=== PATIENT | female | born 1950 | race Caucasian/White ===

== ENCOUNTER → 2017-08-02 | Outpatient (CLI) | payer OTHER ==
[~2017-08-02] MED LIST: ALBU90OI INH; ALBU90OI61; ALBU90OI61 INH; ASPI325; ASPI81CH PO; ATEN25; ATEN25 PO; BACL10 PO; BECL80OI INH; BELSOMRA10 MG PO; CALCIUM 500 +1 EAC1; CENTRUM SILVER1 EAC2 PO; CIPR500 PO; CLON1; CLON1 PO; EFFIENT10 MG PO; EZET10-20; EZET10-20 PO; FISH1000; FISH1000 PO; FLUO20 PO; FLUSAL2505 IH; FLUSAL5005 IH; FLUSAL5005 INH; FOSI10 PO; FURO40 PO; GABA300 PO; GLUC500 PO; HYDACE5 PO; HYDACE7.5 PO; IBUP600 PO; LAMO100 PO; LORA1 PO; MELO7.5 PO; METF500C PO; METO25ER PO; METR500 PO; MORP15ER PO; MULVITMIND PO; NITR.4SL SL; OLAN10 PO; OLAN20 PO; OMEGA PO; OMEP20ER PO; OMEPRAZOLE MAGN20 MG PO; OXYACE5T PO; OXYC5 PO; OXYGEN; PARO20 PO; POTCHL10ER PO; PROM25 PO; PROM25S PR; Percocet 10-321 EACH PO; ROSU10TA PO; RXPROM25S PR; SALM50IP IH; SERT100 PO; TOLT2 PO; VENL150ER PO
== END | disposition home or self-care (01) ==
LOC: LAB 14:30
DX: S21.90XA Unspecified open wound of unspecified part of thorax, initial encounter (principal)
CPT/HCPCS: 87070; 87077; 87147; 87186; 87205

== ENCOUNTER 2019-01-09 08:33 | Day surgery (SDC) | payer OTHER ==
[~2019-01-09] VITALS: Ht 154.9 cm; Wt 91.9 kg
[~2019-01-09 08:33] MED LIST changes: +BUDE6HFA INH; +Prinivil10 MG PO
--- NOTE | 2019-01-09 09:02 | NUR ---
History, Chart, Medications and Allergies reviewed before start of procedure. Patient confirms NPO status and agrees with scheduled surgery. Lungs clear T/O to Auscultation. Pre-Op teaching done. Pt verbalizes understanding. Patient States Post-Procedure ride home has been arranged. PATIENT REPORTS PREP NOT COMPLETED, DR SÁNCHEZ NOTIFIED, ORDERS RECEIVED. 8330 PATIENT TO ENDO 2 FOR TAP WATER ENEMA, GIVEN CALL LIGHT AND RAIL UP, PATIENT VERBALIZES UNDERSTANDING THAT SHE WILL CALL WHEN SHE IS READY TO GET UP TO COMODE.
--- NOTE | 2019-01-09 09:38 | NUR ---
TAP WATER ENEMA COMPLETED PER DR GONZALO PEARSON.
--- NOTE | 2019-01-09 10:07 | NUR ---
01/09/19 Africa Ramirez History, Chart, Medications and Allergies reviewed before start of procedure.PATIENT DETERMINED TO BE ASA APPROPRIATE FOR PROPOFOL SEDATION PRIOR TO START OF PROCEDURE BY .MONITOR INTACT WITH CONTINUOUS PULSE OXIMETRY AND INTERMITTENT BP.O2 VIA N/C INTACT THROUGHOUT SEDATION/PROCEDURE.3-LEAD EKG REVIEWED WITH PHYSICIAN PRIOR TO START OF PROCEDURE.
--- NOTE | 2019-01-09 10:28 | NUR ---
REPORT FROM VALENTE OLGUIN, ASSUMED CARE. PT AWAKE AND ALERT SITTING UP IN BED DRINKING COFFEE.
--- NOTE | 2019-01-09 10:56 | NUR ---
PT GETTING UP TO GET DRESSED ASSISTED BY CAREPROVIDER. Patient up to Ambulate independently. Gait steady. Discharge instructions reviewed with patient. Patient verbalizes understanding. Copy given to patient to take home. Patient States Post-Procedure ride home has been arranged. Discharged via wheelchair to private car for ride home. ALL BELONINGS RETUNED TO PATIENT.
== END 2019-01-09 23:11 | disposition home or self-care (01) ==
LOC: ORSCMMR 08:33 → ORD 10:00 → ORSCMMR 10:00
PROVIDERS: Internal Medicine Gastroenterology
PROC: 0DBN8ZX Excision of Sigmoid Colon, Via Natural or Artificial Opening Endoscopic, Diagnostic (ICD-10-PCS; principal; 2019-01-09 10:00)
DX: Z12.11 Encounter for screening for malignant neoplasm of colon (principal); D12.5 Benign neoplasm of sigmoid colon; K57.30 Diverticulosis of large intestine without perforation or abscess without bleeding; I25.10 Atherosclerotic heart disease of native coronary artery without angina pectoris; J44.9 Chronic obstructive pulmonary disease, unspecified; F31.9 Bipolar disorder, unspecified; I10 Essential (primary) hypertension; G47.33 Obstructive sleep apnea (adult) (pediatric); Z79.899 Other long term (current) drug therapy; Z79.82 Long term (current) use of aspirin; Z87.891 Personal history of nicotine dependence
CPT/HCPCS: 82947; 88305; J2704; J7120

== ENCOUNTER 2021-11-14 10:44 | Emergency (ER) | payer OTHER ==
[~2021-11-14] VITALS: Ht 154.9 cm; Wt 90.7 kg
== END 2021-11-14 13:49 | disposition home or self-care (01) ==
LOC: ER 10:44
DX: M25.551 Pain in right hip (principal); M54.50 Low back pain, unspecified; R10.2 Pelvic and perineal pain; J44.9 Chronic obstructive pulmonary disease, unspecified; F31.9 Bipolar disorder, unspecified; K21.9 Gastro-esophageal reflux disease without esophagitis; I10 Essential (primary) hypertension; E78.5 Hyperlipidemia, unspecified; J45.909 Unspecified asthma, uncomplicated; I25.10 Atherosclerotic heart disease of native coronary artery without angina pectoris; E66.9 Obesity, unspecified; Z68.37 Body mass index [BMI] 37.0-37.9, adult; Z91.81 History of falling; Z88.8 Allergy status to other drugs, medicaments and biological substances; Z87.891 Personal history of nicotine dependence
CPT/HCPCS: 72100; 72170; 73502; J1885

== ENCOUNTER → 2022-07-16 | Outpatient (CLI) | payer OTHER ==
[2022-07-16 10:07] LABS: Albumin, Blood 3.4 g/dL (3.4-5.0); Albumin/Globulin Ratio 0.8 (0.8-1.8); Bilirubin, Total 0.3 mg/dL (0.1-1.0); Bun/Creatinine Ratio 16.6 (12.0-20.0); Calcium, Blood 9.4 mg/dL (8.5-10.1); Creatinine, Blood 0.9 mg/dL (0.40-1.00); Globulin, Blood 4.2 g/dL (2.2-4.0); Potassium, Blood 4.5 mmol/L (3.5-5.5); Total Protein, Blood 7.6 g/dL (6.4-8.2)
== END | disposition home or self-care (01) ==
LOC: LAB SHORT 08:04
PROVIDERS: Hospitalist
DX: I10 Essential (primary) hypertension (principal)
CPT/HCPCS: 36415; 80053

== ENCOUNTER 2022-07-29 08:15 | Day surgery (SDC) | payer OTHER ==
[~2022-07-29 08:15] MED LIST changes: +Amitriptyline H10 MG PO; +BENZ100A PO; +CYCL10 PO; +HYDROCODONE PO; +Isosorbide Mono30 MG PO; +MIRT15ST PO; -OMEPRAZOLE MAGN20 MG PO; +ONDA4 PO
--- NOTE | 2022-07-29 09:41 | NUR ---
PT HAD COFFEE PRESENT WHEN GETTING PT FROM WAITING AREA. PT REPORTED THAT SHE HAD BLACK COFFEE 20 MINUTES AGO. PT IN TO SDS BY WC. NOTIFIED OF PT HAVING COFFEE 20 MINUTES AGO. TALKED WITH PT AND CANCELLED THIS PROCEDURE AND REPORTS HE WILL HAVE IT RESCHEDULED. PT'S RIDE CALLED WHO REPORTED HE WOULD BE ABLE TO PICK HER UP IN APPROX 30 MINUTES. PT REPORTED THAT SHE DID NOT WANT TO WAIT IN HERE TO BE PICKED UP THAT SHE WANTED TO GO TO THE FRONT WHERE SHE WOULD BE PICKED UP. RN ASSISTED IN FINDING HER WALKER. PT USED WALKER AND SAT ON CHAIR WITH STEADY GAIT. PT HAD NO IV, NO SEDATION, NO MEDICATION. PT OUT OF SDS AT 09:47, WAITING FOR RIDE IN FRONT WAITING AREA PER HER REQ.
[2022-08-02] MEDS ORDERED: ONDA4 PO (13:40)
[2022-08-02] MEDS ORDERED: CYCL10 PO (13:40)
== END 2022-07-29 09:47 | disposition home or self-care (01) ==
LOC: ORSCMMR 08:15 → ORD 10:30 → ORSCMMR 10:30
DX: R13.14 Dysphagia, pharyngoesophageal phase (principal); Z53.9 Procedure and treatment not carried out, unspecified reason
CPT/HCPCS: J2704

== ENCOUNTER 2022-08-05 09:54 | Day surgery (SDC) | payer OTHER ==
[~2022-08-05 09:54] MED LIST changes: -BUDE6HFA INH; +SYMBICORT 160-4.6 GM INH
--- NOTE | 2022-08-05 10:51 | NUR ---
PT PROCEDURE CANCELLED DUE TO NOT BEING NPO LONG ENOUGH TO HAVE PROCEDURE DONE. DR GUSMAN AND DR SÁNCHEZ AWARE. PT'S RIDE CALLED AND TAKEN TO RIDE VIA W/C.
[2022-10-13] MEDS ORDERED: CALCITONIN-SAL3.7 M5 (14:17)
== END 2022-08-05 23:03 | disposition home or self-care (01) ==
LOC: ORSCMMR 09:54 → ORD 11:45 → ORSCMMR 23:03
DX: R13.14 Dysphagia, pharyngoesophageal phase (principal); Z53.9 Procedure and treatment not carried out, unspecified reason

== ENCOUNTER 2022-10-10 04:43 | Inpatient (IN) | payer OTHER ==
[~2022-10-10] VITALS: Ht 154.9 cm; Wt 94.8 kg
[~2022-10-10 04:43] MED LIST changes: +BUDE6HFA INH; -SYMBICORT 160-4.6 GM INH
[2022-10-10] MEDS ORDERED: OXAYDO5 M1 PO (07:57)
[2022-10-10 10:11] LABS: BASOPHILS ABSOLUTE AUTO 0.03 K/mm3 (0.00-0.23); BASOPHILS PERCENT AUTO 0 % (0-2); EOSINOPHILS ABSOLUTE AUTO 0.03 K/mm3 (0.00-0.68); EOSINOPHILS PERCENT AUTO 0 % (0-6); Hematocrit 35.4 % (33.0-51.0); Hemoglobin 11.3 g/dL (11.5-16.0); IMMATURE GRAN ABSOLUTE AUTO 0.03 K/mm3 (0.00-0.10); IMMATURE GRAN PERCENT AUTO 0 % (0-1); LYMPHOCYTES ABSOLUTE AUTO 1.36 K/mm3 (0.84-5.20); LYMPHOCYTES PERCENT AUTO 17 % (21-46); MONOCYTES PERCENT AUTO 5 % (4-13); Mean Corpuscular HGB 27.5 pg (26.0-34.0); Mean Corpuscular HGB Conc 31.9 g/dL (31.5-36.5); Mean Corpuscular Volume 86 fL (80-100); Mean Platelet Volume 8.9 fL (9.1-12.4); NEUTROPHILS ABSOLUTE AUTO 6.17 K/mm3 (1.96-9.15); NEUTROPHILS PERCENT AUTO 77 % (41-73); Platelet Count 217 K/mm3 (150-400); RDW Standard Deviation 47.2 fL (35.1-46.3); Red Blood Cell Count 4.11 M/mm3 (3.80-5.20); White Blood Cell Count 8.02 K/mm3 (4.00-11.30)
[2022-10-10 10:22] LABS: Bun/Creatinine Ratio 25.8 (12.0-20.0); Calcium, Blood 8.9 mg/dL (8.5-10.1); Creatinine, Blood 0.66 mg/dL (0.40-1.00)
--- NOTE | 2022-10-10 11:10 | NUR ---
PATIENT ARRIVED TO ROOM 212 VIA GURNEY. PATIENT STOOD AND TRANSFERRED TO BED MINIMAL 1P ASSIST. PATIENT REPORTS 8/10 PAIN TO R SIDE, UNDER ARMPIT. LUNGS CLEAR, DIMINISHED IN BASES. DENIES CP/PRESSURE/SOB. DENIES DIZZINESS/LIGHTHEADEDNESS. VSS ON RA. PATIENT IS A&O X4. NO BRUISING NOTED T/O. ORIENTED TO ROOM AND CALL LIGHT, IN REACH. PLAN TO MEDICATE PER EMAR.
--- NOTE | 2022-10-10 17:05 | NUR ---
SHIFT SUMMARY NO ACUTE CHANGES SINCE ARRIVAL TO UNIT. PAIN MANAGED PER EMAR. PATIENT TOLERATING REGULAR PO DIET. VSS ON RA. PATIENT UP TO BSC X1, MINIMAL ASSISTANCE. CALLS APPROPRIATELY, IN REACH. WILL REPORT TO ONCOMING RN AT 1900.
--- NOTE | 2022-10-11 03:52 | NUR ---
SHIFT SUMMARY AOX3. FOLLOWS DIRECTIONS, ANSWERS QUESTIONS APPROP. BP ELEVATED @HS 165/122, HOWEVER PT WAS IN EXTREME PAIN & HAD JUST TRANSFERRED FROM BSC. WHEN BP RECHECKED AFTER PAIN MEDS IT TRENDED DOWN TO 145/85. WITH AM VS PT SPO2 @84-86% ON RA, PT MOUTH BREATHING, PLACED 2L O2 VIA NC ON & PT SPO2 INCREASED TO 93%, HAS HX MARQUES. REPORTS -06/26 LIZ ON R SIDE R/T RIB FX, MEDICATED 2x c 1MG IV DILAUDID & 2 TAB NORCO, PT ABLE TO REST COMFORTABLY FOR A FEW HRS. PT 1-2 ASSIST TO BSC R/T PAIN & STIFF MOVEMENT. CALL LIGHT IN REACH, WILL MONITOR.
[2022-10-11 05:35] LABS: BASOPHILS ABSOLUTE AUTO 0.02 K/mm3 (0.00-0.23); BASOPHILS PERCENT AUTO 0 % (0-2); EOSINOPHILS ABSOLUTE AUTO 0.11 K/mm3 (0.00-0.68); EOSINOPHILS PERCENT AUTO 2 % (0-6); Hematocrit 38.5 % (33.0-51.0); Hemoglobin 12.2 g/dL (11.5-16.0); IMMATURE GRAN ABSOLUTE AUTO 0.03 K/mm3 (0.00-0.10); IMMATURE GRAN PERCENT AUTO 0 % (0-1); LYMPHOCYTES ABSOLUTE AUTO 0.89 K/mm3 (0.84-5.20); LYMPHOCYTES PERCENT AUTO 13 % (21-46); MONOCYTES ABSOLUTE AUTO 0.35 K/mm3 (0.16-1.47); MONOCYTES PERCENT AUTO 5 % (4-13); Mean Corpuscular HGB Conc 31.7 g/dL (31.5-36.5); Mean Corpuscular Volume 89 fL (80-100); Mean Platelet Volume 8.9 fL (9.1-12.4); NEUTROPHILS ABSOLUTE AUTO 5.44 K/mm3 (1.96-9.15); NEUTROPHILS PERCENT AUTO 80 % (41-73); Platelet Count 211 K/mm3 (150-400); RDW Coefficient Variation 15.2 % (11.7-14.2); RDW Standard Deviation 49.3 fL (35.1-46.3); Red Blood Cell Count 4.35 M/mm3 (3.80-5.20); White Blood Cell Count 6.84 K/mm3 (4.00-11.30)
[2022-10-11 06:04] LABS: Bun/Creatinine Ratio 30.7 (12.0-20.0); Calcium, Blood 8.9 mg/dL (8.5-10.1); Creatinine, Blood 0.59 mg/dL (0.40-1.00); Potassium, Blood 4.1 mmol/L (3.5-5.5)
--- NOTE | 2022-10-11 14:30 | NUR ---
DISCHARGE SUMMARY PT A&OX4, VSS/RA, SILVIANO PO, VOIDING, AMB FWW, PAIN MANAGED, TCDB & I.S. EDU/ENC/DEMONSTRATED, SPLINTING WITH COUGH/LAUGH/SNEEZE/REPOSITION, IV DC'D. DC INS PROVIDED. PT AND D.I.L. REP UNDERSTANDING THOSE INSTRUCTIONS INCLUDING FU WITH PCP 1 WEEK, SURGEON IF NEEDED, TCDB & I.S. FREQUENTLY, TAKE SHORT FREQUENT WALKS WITH REST PERIODS. DIL STATES CAREGIVER WILL MEET PT AT HOME. LEFT VIA WC WITH TRANSPORT WITH ALL PERSONAL POSSESSIONS INCLUDING DC PACKET, 1 NARC SCRIPT, PERSONAL FWW, TABLET & PHONE.
== END 2022-10-11 14:42 | disposition home or self-care (01) | DRG 86 ==
LOC: ER 04:43 → SURS 09:14
PROVIDERS: Student in an Organized Health Care Education/Training Program; ADMIT Surgery
DX: S06.5X0A Traumatic subdural hemorrhage without loss of consciousness, initial encounter (principal); S22.41XA Multiple fractures of ribs, right side, initial encounter for closed fracture; S32.028A Other fracture of second lumbar vertebra, initial encounter for closed fracture; J44.9 Chronic obstructive pulmonary disease, unspecified; F31.9 Bipolar disorder, unspecified; M19.90 Unspecified osteoarthritis, unspecified site; G89.4 Chronic pain syndrome; K21.9 Gastro-esophageal reflux disease without esophagitis; E78.00 Pure hypercholesterolemia, unspecified; G47.33 Obstructive sleep apnea (adult) (pediatric); E66.9 Obesity, unspecified; I25.10 Atherosclerotic heart disease of native coronary artery without angina pectoris; I11.0 Hypertensive heart disease with heart failure; I50.9 Heart failure, unspecified; R73.03 Prediabetes; Z96.643 Presence of artificial hip joint, bilateral; M85.80 Other specified disorders of bone density and structure, unspecified site; Z68.37 Body mass index [BMI] 37.0-37.9, adult; Z90.49 Acquired absence of other specified parts of digestive tract; Z98.51 Tubal ligation status; Z90.710 Acquired absence of both cervix and uterus; Z90.722 Acquired absence of ovaries, bilateral; Z98.890 Other specified postprocedural states; Z88.8 Allergy status to other drugs, medicaments and biological substances; Z79.82 Long term (current) use of aspirin; Z79.84 Long term (current) use of oral hypoglycemic drugs; Z79.899 Other long term (current) drug therapy; W01.198A Fall on same level from slipping, tripping and stumbling with subsequent striking against other object, initial encounter
CPT/HCPCS: 36415; 70450; 71046; 71260; 80048; 82947; 85025; 93005; 93010; 94640; 94664; 94760; 96374-59; 96375-59; 97162; 97165; 97530; 97535; 99285-25; A9270; G0378; J1170; J1885; J2270; J3010; Q9967

== ENCOUNTER 2022-10-13 04:39 | Inpatient (IN) | payer OTHER ==
[~2022-10-13] VITALS: Ht 154.9 cm; Wt 92.1 kg
[~2022-10-13 04:39] MED LIST changes: +OXAYDO5 M1 PO
[2022-10-13 05:06] LABS: BASOPHILS ABSOLUTE AUTO 0.03 K/mm3 (0.00-0.23); BASOPHILS PERCENT AUTO 0 % (0-2); EOSINOPHILS ABSOLUTE AUTO 0.01 K/mm3 (0.00-0.68); EOSINOPHILS PERCENT AUTO 0 % (0-6); Hematocrit 34.3 % (33.0-51.0); Hemoglobin 10.8 g/dL (11.5-16.0); IMMATURE GRAN ABSOLUTE AUTO 0.03 K/mm3 (0.00-0.10); IMMATURE GRAN PERCENT AUTO 0 % (0-1); LYMPHOCYTES ABSOLUTE AUTO 0.64 K/mm3 (0.84-5.20); LYMPHOCYTES PERCENT AUTO 7 % (21-46); MONOCYTES PERCENT AUTO 3 % (4-13); Mean Corpuscular HGB 28.2 pg (26.0-34.0); Mean Corpuscular HGB Conc 31.5 g/dL (31.5-36.5); Mean Corpuscular Volume 90 fL (80-100); Mean Platelet Volume 8.8 fL (9.1-12.4); NEUTROPHILS ABSOLUTE AUTO 7.83 K/mm3 (1.96-9.15); NEUTROPHILS PERCENT AUTO 89 % (41-73); Platelet Count 236 K/mm3 (150-400); RDW Coefficient Variation 15.6 % (11.7-14.2); RDW Standard Deviation 50.8 fL (35.1-46.3); Red Blood Cell Count 3.83 M/mm3 (3.80-5.20); White Blood Cell Count 8.84 K/mm3 (4.00-11.30)
[2022-10-13 05:26] LABS: Albumin, Blood 2.3 g/dL (3.4-5.0); Albumin/Globulin Ratio 0.6 (0.8-1.8); Bilirubin, Total 0.3 mg/dL (0.1-1.0); Bun/Creatinine Ratio 35.3 (12.0-20.0); Calcium, Blood 7.5 mg/dL (8.5-10.1); Creatinine, Blood 0.54 mg/dL (0.40-1.00); Globulin, Blood 4.1 g/dL (2.2-4.0); Potassium, Blood 3.8 mmol/L (3.5-5.5); Total Protein, Blood 6.4 g/dL (6.4-8.2)
[2022-10-13 06:53] LABS: Creatine Kinase MB 33.4 ng/mL (0.0-3.6)
[2022-10-13 07:13] LABS: Creatine Kinase MB Index 1.6 (0.0-4.0)
--- NOTE | 2022-10-13 11:12 | NUR ---
PATIENT ARRIVED ONTO THE UNIT FROM ER TODAY AT 10:30. RIGHT SIDE RIB FX PATIENT IS A&OX4. PATIENT HAS HER RIGHT SIDE GUARDED. PATIENT REPORTS 10/10 PAIN ON HER RIGHT SIDE WITH MOVEMENT. SHE HAS BRUISING SCATTERED THROUGHTOUT. SHE IS ON 2L NC WITH >90% OXYGEN SATS WITH A SLIGHT DRY COUGH. LUNG SOUNDS ARE COURSE/DIMINISHED THROUGHOUT. SHE IS LAYING IN BED WITH CALL LIGHT IN REACH.
[2022-10-13] MEDS ORDERED: CALCITONIN SALMON (14:17)
--- NOTE | 2022-10-13 17:25 | NUR ---
SHIFT SUMMARY: RIGHT SIDE RIB FX PATIENT IS A&OX4. VS ARE WNL AND IS ON 2L NC WITH >90% OXYGEN SATS. PATIENT DOES HAVE A MOIST COUGH ESPECIALLY WITH AMBULATION. ENCOURAGING USE OF DEEP OF BREATHING AND COUGHING WITH A PILLOW. SHE HAS HAD HER NEBULIZER FROM [facility] WHICH PATIENT REPORTED "THAT WAS VERY HELPFUL". SHE IS TOLERATING PO INTAKE AND IS VOIDING. PATIENT IS A SBA WITH A FWW AND GAIT BELT. PATIENT CALLS APPROPRIATELY WITH CALL LIGHT IN REACH. SHE DID TOLERATE SITTING UP IN THE RECLINER FOR A COUPLE OF HOURS TODAY.
[2022-10-14 05:10] LABS: BASOPHILS ABSOLUTE AUTO 0.02 K/mm3 (0.00-0.23); BASOPHILS PERCENT AUTO 0 % (0-2); EOSINOPHILS ABSOLUTE AUTO 0.16 K/mm3 (0.00-0.68); EOSINOPHILS PERCENT AUTO 2 % (0-6); Hematocrit 35.5 % (33.0-51.0); Hemoglobin 11.6 g/dL (11.5-16.0); IMMATURE GRAN ABSOLUTE AUTO 0.02 K/mm3 (0.00-0.10); IMMATURE GRAN PERCENT AUTO 0 % (0-1); LYMPHOCYTES ABSOLUTE AUTO 1.57 K/mm3 (0.84-5.20); LYMPHOCYTES PERCENT AUTO 19 % (21-46); MONOCYTES ABSOLUTE AUTO 0.43 K/mm3 (0.16-1.47); MONOCYTES PERCENT AUTO 5 % (4-13); Mean Corpuscular HGB 28.5 pg (26.0-34.0); Mean Corpuscular HGB Conc 32.7 g/dL (31.5-36.5); Mean Corpuscular Volume 87 fL (80-100); NEUTROPHILS ABSOLUTE AUTO 5.92 K/mm3 (1.96-9.15); NEUTROPHILS PERCENT AUTO 73 % (41-73); Platelet Count 245 K/mm3 (150-400); RDW Coefficient Variation 15.5 % (11.7-14.2); RDW Standard Deviation 49.2 fL (35.1-46.3); Red Blood Cell Count 4.07 M/mm3 (3.80-5.20); White Blood Cell Count 8.12 K/mm3 (4.00-11.30)
[2022-10-14 05:42] LABS: Albumin, Blood 2.5 g/dL (3.4-5.0); Albumin/Globulin Ratio 0.6 (0.8-1.8); Bilirubin, Total 0.5 mg/dL (0.1-1.0); Bun/Creatinine Ratio 31.7 (12.0-20.0); Calcium, Blood 9.1 mg/dL (8.5-10.1); Creatinine, Blood 0.57 mg/dL (0.40-1.00); Globulin, Blood 4.1 g/dL (2.2-4.0); Potassium, Blood 3.9 mmol/L (3.5-5.5); Total Protein, Blood 6.6 g/dL (6.4-8.2)
--- NOTE | 2022-10-14 06:24 | NUR ---
MANAGER DIGITAL SUMMARY PT STILL HAVING PAIN TO R RIBS AND SIDE. MEDICATED WITH PRN FENTANYL AND OXYCODONE PER EMAR. PT ALSO GIVEN FLEXERIL WHICH SEEMED TO HELP. PT VERY PAINFUL WHEN GETTING UP TO THE BSC BUT HAS BEEN ABLE TO SLEEP THROUGH MOST OF THE SHIFT. PT LUNG SOUNDS CONGESTED HOWEVER PT HAS TROUBLE DEEP COUGHING DUE TO RIB PAIN, PLACED ON 3L O2 TO MAINTAIN O2 SATS. PT SLEEPING AT THIS TIME WITH CALL LIGHT IN REACH. WILL CONTINUE TO MONITOR.
--- NOTE | 2022-10-14 18:10 | NUR ---
PT REPORTS PAIN HAS BEEN 7-10/10 THROUGHOUT SHIFT TO RIGHT RIBCAGE AND LEFT FOOT. PT OOB TO COMMODE WITH 2 PERSON STANDBY ASSIST. PT TEARFUL AT TIMES STATING THAT SHE IS AFRAID SHE WILL NEVER GET TO RW[place] TO HER HOME
--- NOTE | 2022-10-15 06:39 | NUR ---
SHIFT SUMMARY: PT RESTED T/O THE NIGHT. PAIN WELL MANAGED PER EMAR ORDERS. UP TO COMMODE WITH X2 ASSIST. RIGHT RIB FX AND FX TO THE PROXIMAL END OF THE L METATARSAL. PAIN WITH MOVEMENT AND AMBULATION. TOLERATING PO FLUIDS AND FOOD. PLANS TO POTENTIALLY DISCHARGE TO A FACILITY, PER PATIENT. RESTING WITH CALL LIGHT IN REACH. WILL GIVE REPORT TO DAY TIME RN.
--- NOTE | 2022-10-15 14:00 | NUR ---
ATTEMPTED TO SPLINT PATIENTS 5TH METATARSEL TO LEFT FOOT, PER ORDERS. UNABLE TO PLACE SPLINT D/T LOCATION OF FRACTURE AND RELATED PAIN REPORTED BY PATIENT. PATIENT REPORTS "IT FEELS FINE LONG I DONT PUT PRESSURE ON IT". REMINDED PATIENT THAT THE LEFT LEG IS TO BE NON-WEIGHT BEARING PER MD'S ORDERS.
--- NOTE | 2022-10-15 17:22 | NUR ---
SHIFT SUMMARY NO ACUTE CHANGES THIS SHIFT. PATIENT REMAINS VERY PAINFUL WITH MOVEMENT BUT PAIN MINIMAL AT REST. EATING, DRINKING, & VOIDING WELL. 1P MINIMAL ASSIST TO BSC. CALLS APPROPRIATELY, IN REACH. WILL REPORT TO ONCOMING RN AT 1900.
[2022-10-16 04:40] LABS: BASOPHILS ABSOLUTE AUTO 0.02 K/mm3 (0.00-0.23); BASOPHILS PERCENT AUTO 0 % (0-2); EOSINOPHILS ABSOLUTE AUTO 0.21 K/mm3 (0.00-0.68); EOSINOPHILS PERCENT AUTO 3 % (0-6); Hematocrit 35.2 % (33.0-51.0); Hemoglobin 11.2 g/dL (11.5-16.0); IMMATURE GRAN ABSOLUTE AUTO 0.04 K/mm3 (0.00-0.10); IMMATURE GRAN PERCENT AUTO 1 % (0-1); LYMPHOCYTES ABSOLUTE AUTO 1.57 K/mm3 (0.84-5.20); LYMPHOCYTES PERCENT AUTO 25 % (21-46); MONOCYTES ABSOLUTE AUTO 0.38 K/mm3 (0.16-1.47); MONOCYTES PERCENT AUTO 6 % (4-13); Mean Corpuscular HGB 27.7 pg (26.0-34.0); Mean Corpuscular HGB Conc 31.8 g/dL (31.5-36.5); Mean Corpuscular Volume 87 fL (80-100); Mean Platelet Volume 8.7 fL (9.1-12.4); NEUTROPHILS ABSOLUTE AUTO 3.96 K/mm3 (1.96-9.15); NEUTROPHILS PERCENT AUTO 64 % (41-73); Platelet Count 259 K/mm3 (150-400); RDW Coefficient Variation 15.6 % (11.7-14.2); RDW Standard Deviation 49.5 fL (35.1-46.3); Red Blood Cell Count 4.04 M/mm3 (3.80-5.20); White Blood Cell Count 6.18 K/mm3 (4.00-11.30)
[2022-10-16 05:00] LABS: Bun/Creatinine Ratio 22.7 (12.0-20.0); Calcium, Blood 8.7 mg/dL (8.5-10.1); Creatinine, Blood 0.53 mg/dL (0.40-1.00); Potassium, Blood 3.8 mmol/L (3.5-5.5)
--- NOTE | 2022-10-16 05:30 | NUR ---
SHIFT SUMMARY PT A&OX4, AND COOPERATIVE WITH CARE. NO ACUTE CHANGES. MEDICATED FOR PAIN PER EMAR, INCREASES WITH AMBULATION. 1 ASSIST WITH FWW TO BSC. TOLERATING PO INTAKE. CALLS APPROPRIATELY, CALL LIGHT WITHIN REACH.
--- NOTE | 2022-10-16 16:17 | NUR ---
SHIFT SUMMARY PT REMAINS IN THE HOSPITAL WAITING FOR SNF PLACEMENT ON TUESDAY. PAIN MANAGED WITH PO PAIN MEDICATION. PO PAIN MEDICATION INCREASED TO OXY 15MG; PT HAS NOT REQUIRED FENTANYL FOR BREAKTHROUGH PAIN SINCE OXY WAS INCREASED. PT IS A 1 PERSON MODERATE ASSIST WHEN OOB. PT EDUCATED TO USE INCENTIVE SPIROMETER AND HAS BEEN USING T/O THE DAY. WILL MONITOR UNTIL REPORT TO TIFFANIE RN.
--- NOTE | 2022-10-17 06:02 | NUR ---
SHIFT SUMMARY NO ACUTE CHANGES OVERNIGHT, PT HAS SLEPT MOST OF THE NIGHT. PT PAIN HAS BEEN WELL MANAGED THIS SHIFT, MEDICATED X2 FOR PAIN. SHE HAS BEEN UP AND HAS AMBULATED TO THE BS WITH 1 PA. VITALS ARE STABLE, ASSESSMENT AND PLAN OF CARE UNCHANGED. BED IN LOWEST POSITION, CALL LIGHT WITHIN REACH.
--- NOTE | 2022-10-17 17:15 | NUR ---
SUMMARY NO ACUTE CHANGES T/O SHIFT. MEDICATED PER ORDERS FOR PAIN. PT SAT UP IN CHAIR FOR MEALS AND UP TO BSC TO TOILET. CALL LIGHT IN REACH.
--- NOTE | 2022-10-18 06:53 | NUR ---
SUMMARY NO ACUTE CHANGES NOTED THROUGH THE NIGHT, VSS, ON RA, INCENTIVE SPIROMETER ENC, PAIN MNGD PER EMAR PRN, SBA TO BSC W/FWW, VOIDING WNL, TOLERATING PO INTAKE, CALL LIGHT IN REACH, RESTING QUIETLY IN BED DRINKING HOT TEA, REPORT GIVEN TO ONCOMING RN.
--- NOTE | 2022-10-18 17:21 | NUR ---
SHIFT SUMMARY NO ACUTE CHANGES THIS SHIFT. PATIENT EATING, DRINKING, & VOIDING WEL;L. AMBULATING WELL W/ 1P SBA TO CHAIR & BATHROOM. PATIENT REMIANS PAINFUL W/ MOVEMENT, MEDICATED PER EMAR. PLAN FOR PATIENT TO DC TO SNF, AWAITING INSURANCE AUTHORIZATION. CALLS APPROPRIATELY, WILL REPORT TO ONCOMING RN AT 1900.
--- NOTE | 2022-10-19 07:21 | NUR ---
SHIFT SUMMARY MO ACUTE CHANGES NOTED, VSS, RA, I/S ENC, PRODUCTIVE COUGH, PAIN MNGD PER EMAR, PT STATES "FENTANYL PATCH IS HELPING ALOT", TOLERATING PO INTAKE, VOIDING WNL, REPORT GIVEN TO DAY RN, CALL LIGHT IN REACH.
[2022-10-19] MEDS ORDERED: LEVO750 PO (16:19)
[2022-10-19] MEDS ORDERED: Acetaminophen325 M1 PO (16:19)
--- NOTE | 2022-10-19 16:50 | NUR ---
DISCHARGE PATIENT EATING, DRINKING, & VOIDING WELL. AMBULATING WITH STAND BY ASSIST WELL. MODERATE PAIN, MANAGED PER EMAR. PATIENT FEELS COMFORTABLE DC'ING HOME W/ PAIN MEDICATION REGIMEN PRESCRIBED. DICUSSED DISCHARGE INSTRUCTIONS. DISCUSSED RECCOMENDED ACTIVITY RESTRICTIONS OF USING A WALKER WITH ALL ACTIVITY, SUPERVISION WITH ACITIVITY, ESPECIALLY BENDING/STOOPING. PATIENT VERBALIZES AGREEMENT. PATIENT ESCORTED OUT BY [facility] TRANSPORT VIA W/C.
== END 2022-10-19 16:50 | disposition home health service (06) | DRG 562 ==
LOC: ER 04:39 → SURS 04:40
PROVIDERS: Student in an Organized Health Care Education/Training Program; ADMIT Internal Medicine
DX: S92.355A Nondisplaced fracture of fifth metatarsal bone, left foot, initial encounter for closed fracture (principal); J18.9 Pneumonia, unspecified organism; S06.5XAA Traumatic subdural hemorrhage with loss of consciousness status unknown, initial encounter; J96.01 Acute respiratory failure with hypoxia; S22.9XXA Fracture of bony thorax, part unspecified, initial encounter for closed fracture; S22.41XA Multiple fractures of ribs, right side, initial encounter for closed fracture; J98.11 Atelectasis; I50.32 Chronic diastolic (congestive) heart failure; J44.9 Chronic obstructive pulmonary disease, unspecified; I25.10 Atherosclerotic heart disease of native coronary artery without angina pectoris; F31.9 Bipolar disorder, unspecified; M19.90 Unspecified osteoarthritis, unspecified site; E78.00 Pure hypercholesterolemia, unspecified; G47.33 Obstructive sleep apnea (adult) (pediatric); G43.909 Migraine, unspecified, not intractable, without status migrainosus; E66.9 Obesity, unspecified; Z68.37 Body mass index [BMI] 37.0-37.9, adult; R73.03 Prediabetes; G89.4 Chronic pain syndrome; M85.80 Other specified disorders of bone density and structure, unspecified site; I11.0 Hypertensive heart disease with heart failure; K21.9 Gastro-esophageal reflux disease without esophagitis; W19.XXXA Unspecified fall, initial encounter; Z96.641 Presence of right artificial hip joint; I25.2 Old myocardial infarction; Z79.84 Long term (current) use of oral hypoglycemic drugs; Z79.82 Long term (current) use of aspirin; Z79.899 Other long term (current) drug therapy; Z79.51 Long term (current) use of inhaled steroids; Z90.49 Acquired absence of other specified parts of digestive tract; Z98.51 Tubal ligation status; Z90.710 Acquired absence of both cervix and uterus; Z90.722 Acquired absence of ovaries, bilateral; Z98.1 Arthrodesis status; Z95.5 Presence of coronary angioplasty implant and graft; Z87.891 Personal history of nicotine dependence; Z88.1 Allergy status to other antibiotic agents
CPT/HCPCS: 36415; 70450; 71046; 71250; 73610; 73620; 80048; 80053; 82550; 82553; 85025; 87070; 87077; 87147; 87186; 87205; 93005; 93010; 94640; 94664; 94760; 96360; 96365; 96366; 96372; 96375; 96376; 97110; 97162; 97165; 97530; 97535; 99285-25; A9270; C1751; G0378; J0456; J0696; J1644; J3010; J7030; J7050

== ENCOUNTER 2022-10-21 00:13 | Observation (INO) | payer OTHER ==
[~2022-10-21] VITALS: Ht 160 cm; Wt 96.9 kg
[~2022-10-21 00:13] MED LIST changes: +Acetaminophen325 M1 PO; -BUDE6HFA INH; +CALCITONIN-SAL3.7 M5; +LEVO750 PO; +SYMBICORT 160-4.6 GM INH
[2022-10-21 00:49] LABS: Base Excess Venous 4.7 mmol/L; Bicarbonate Venous 27.4 mmol/L (24.0-30.0); PCO2 Venous 52.5 mmHg (38-42); pH Blood Venous 7.37 (7.34-7.37)
[2022-10-21 00:50] LABS: BASOPHILS ABSOLUTE AUTO 0.05 K/mm3 (0.00-0.23); BASOPHILS PERCENT AUTO 0 % (0-2); EOSINOPHILS ABSOLUTE AUTO 0.04 K/mm3 (0.00-0.68); EOSINOPHILS PERCENT AUTO 0 % (0-6); Hemoglobin 11.6 g/dL (11.5-16.0); IMMATURE GRAN ABSOLUTE AUTO 0.17 K/mm3 (0.00-0.10); IMMATURE GRAN PERCENT AUTO 1 % (0-1); LYMPHOCYTES ABSOLUTE AUTO 0.93 K/mm3 (0.84-5.20); LYMPHOCYTES PERCENT AUTO 5 % (21-46); MONOCYTES ABSOLUTE AUTO 0.56 K/mm3 (0.16-1.47); MONOCYTES PERCENT AUTO 3 % (4-13); Mean Corpuscular HGB 27.9 pg (26.0-34.0); Mean Corpuscular HGB Conc 31.4 g/dL (31.5-36.5); Mean Corpuscular Volume 89 fL (80-100); Mean Platelet Volume 8.7 fL (9.1-12.4); NEUTROPHILS ABSOLUTE AUTO 16.67 K/mm3 (1.96-9.15); NEUTROPHILS PERCENT AUTO 91 % (41-73); Platelet Count 368 K/mm3 (150-400); RDW Coefficient Variation 16.3 % (11.7-14.2); RDW Standard Deviation 53.3 fL (35.1-46.3); Red Blood Cell Count 4.16 M/mm3 (3.80-5.20); White Blood Cell Count 18.42 K/mm3 (4.00-11.30)
[2022-10-21 01:20] LABS: Albumin, Blood 3.1 g/dL (3.4-5.0); Albumin/Globulin Ratio 0.8 (0.8-1.8); Bilirubin, Total 0.4 mg/dL (0.1-1.0); Bun/Creatinine Ratio 16.8 (12.0-20.0); Calcium, Blood 9.6 mg/dL (8.5-10.1); Creatinine, Blood 0.95 mg/dL (0.40-1.00); Globulin, Blood 3.9 g/dL (2.2-4.0); Potassium, Blood 4.6 mmol/L (3.5-5.5)
[2022-10-21 03:39] LABS: Influenza A, PCR NEGATIVE (NEGATIVE); Influenza B, PCR NEGATIVE (NEGATIVE); Resp Syncytial Virus, PCR NEGATIVE (NEGATIVE); SARS-Cov-2 (COVID-19) PCR, MMC NEGATIVE (NEGATIVE)
[2022-10-21 04:08] LABS: Source, Urine Straight Cath
[2022-10-21 04:16] VITALS: BP 123/97
[2022-10-21 04:18] LABS: Blood, Urine Neg (Neg); Glucose Qualitative, Urine Neg (Neg); Ketones, Urine 1+ (Neg); Leukocyte Esterase, Urine 1+ (Neg); Nitrite, Urine Neg (Neg); Protein, Urine 2+ (Neg); Specific Gravity, Urine 1.015 (1.003-1.022); Urobilinogen, Urine 2+ (Normal)
[2022-10-21 04:35] LABS: Appearance, Urine Hazy (Clear); Bilirubin, Urine 2+ (Neg); Color, Urine Yellow (P-Yellow)
[2022-10-21 04:37] LABS: Bacteria Many /hpf; Granular Casts 0-2 /lpf (0); Red Blood Cells, Urine 0-2 /hpf (0-2); Squamous Epithelial Cells Few /hpf (Few)
[2022-10-21 05:22] LABS: Bacteria Not Seen /hpf; Red Blood Cells, Urine 0-2 /hpf (0-2); Squamous Epithelial Cells Not Seen /hpf (Few); White Blood Cells, Urine 0-2 /hpf (0-5)
--- NOTE | 2022-10-21 05:32 | NUR ---
Assumed care of pt at 0412 as an ER admit. A/Ox4 but makes confusing statements and very lethargic. Bedrest currently. C/o 10/10 pain to R rib area related to recent fall, but is able to go to sleep after adding pillows and limiting stimulation. Maintains above 95% on 3L NC, titrating down as tolerated. LS clear on top and crackles at bases. SR w/BBB on tele 80's. Faint +1 pulses t/o. Denies CP/pressure, VSS. Nonpitting edema to BLE. Abdomen moderately distended, firm to palpation with hypoactive bowel tones x 4. Bruises noted t/o related to recent falls. Attempted to call son (Juan [phone]) but was unable to reach him, left vm. Patient sleeping comfortably since admission. Will report to dayshift RN.
--- NOTE | 2022-10-21 06:55 | NUR ---
Went into room with lab, patient is very difficult to arouse. Required painful stimuli to arouse. Once awake was able to answer questions. VSS.
[2022-10-21 07:19] LABS: BASOPHILS ABSOLUTE AUTO 0.04 K/mm3 (0.00-0.23); BASOPHILS PERCENT AUTO 0 % (0-2); EOSINOPHILS ABSOLUTE AUTO 0.09 K/mm3 (0.00-0.68); EOSINOPHILS PERCENT AUTO 1 % (0-6); Hematocrit 34.1 % (33.0-51.0); Hemoglobin 10.8 g/dL (11.5-16.0); IMMATURE GRAN ABSOLUTE AUTO 0.08 K/mm3 (0.00-0.10); IMMATURE GRAN PERCENT AUTO 1 % (0-1); LYMPHOCYTES ABSOLUTE AUTO 1.76 K/mm3 (0.84-5.20); LYMPHOCYTES PERCENT AUTO 13 % (21-46); MONOCYTES ABSOLUTE AUTO 0.62 K/mm3 (0.16-1.47); MONOCYTES PERCENT AUTO 5 % (4-13); Mean Corpuscular HGB 28.2 pg (26.0-34.0); Mean Corpuscular HGB Conc 31.7 g/dL (31.5-36.5); Mean Corpuscular Volume 89 fL (80-100); Mean Platelet Volume 8.8 fL (9.1-12.4); NEUTROPHILS ABSOLUTE AUTO 10.97 K/mm3 (1.96-9.15); NEUTROPHILS PERCENT AUTO 81 % (41-73); Platelet Count 299 K/mm3 (150-400); RDW Coefficient Variation 16.5 % (11.7-14.2); RDW Standard Deviation 53.7 fL (35.1-46.3); Red Blood Cell Count 3.83 M/mm3 (3.80-5.20); White Blood Cell Count 13.56 K/mm3 (4.00-11.30)
[2022-10-21 07:36] LABS: Albumin, Blood 2.7 g/dL (3.4-5.0); Albumin/Globulin Ratio 0.7 (0.8-1.8); Bilirubin, Total 0.3 mg/dL (0.1-1.0); Bun/Creatinine Ratio 19.9 (12.0-20.0); Calcium, Blood 9.2 mg/dL (8.5-10.1); Creatinine, Blood 0.81 mg/dL (0.40-1.00); Globulin, Blood 3.8 g/dL (2.2-4.0); Potassium, Blood 4.7 mmol/L (3.5-5.5); Total Protein, Blood 6.5 g/dL (6.4-8.2)
[2022-10-21 08:03] VITALS: BP 132/81
--- NOTE | 2022-10-21 08:25 | NUR ---
Pt was awake, talking confusedly, mumbling incoherently at times, but opening her eyes spontaneously and following a few simple commands for about an hour after administration of NARCAN. At this time she is asleep, lethargic again, and not responding to commands.
--- NOTE | 2022-10-21 11:43 | NUR ---
Pt is completely awake, alert and oriented and states that she cannot remember what happened. States her pain medication she was taking at home wasn't quite enough. She is embarrassed about everything that happened. She is worried about her cats. LILLY Yelena spoke with daughter in law Nasima and the cats are being taken care of. This was communicated to the patient. Dr. Orona is here talking with her now.
--- NOTE | 2022-10-21 13:47 | NUR ---
Pt finished working with occupational therapist; states she is ready for her IV pain medication now. she is sitting up in the chair, talking with her daughter in law and finishing hear lunch.
[2022-10-21 15:09] VITALS: BP 116/77
--- NOTE | 2022-10-21 16:16 | NUR ---
Met with pt twice today, the first time she was tearful and we only talked about her cats, specifically her concern of cats being euthanized. She was tearful and stated she feels "upset and doesn't want to talk to anyone right now". I offered to return later in the day. Upon returning, the pt had spent some time talking to a volunteer, and had spoken to both her family and Dr. Orona. She smiled throughout the conversation, and request to fill out POLST. She v/u of comfort care, and POLST completed.
--- NOTE | 2022-10-21 17:34 | NUR ---
Report given to medical floor RN. Pt will be transferring to room 347 shortly.
--- NOTE | 2022-10-21 17:57 | NUR ---
PT TRANSFERRED TO MEDICAL FLOOR BY WHEELCHAIR WITH PCT.
--- NOTE | 2022-10-21 19:22 | NUR ---
PT RECIEVED FROM [facility]. 2L NC. ALERT AND ORIENTED X4
[2022-10-21 20:10] VITALS: BP 133/111
[2022-10-22 03:38] VITALS: BP 153/90
--- NOTE | 2022-10-22 06:14 | NUR ---
MORE BALANCED AND ORIENTED THAN PREVIOUS CHARTING REPORTS INDICATE. SBA TO BSC TONIGHT. VSS, AO, PLEASANT. ROXANOL 10 MG FOR PAIN WITH FENTANYL PATCH IN PLACE.
[2022-10-22 07:25] VITALS: BP 136/73
[2022-10-22 15:05] VITALS: BP 138/76
--- NOTE | 2022-10-22 16:38 | NUR ---
SHIFT SUMMARY PT IS ALERT AND ORIENTED X4. WEANED OFF OF 02. TOLORAING PO MEDS. NO ACUTE CHANGES THIS SHIFT.
[2022-10-22 19:25] VITALS: BP 137/115
[2022-10-22 19:46] VITALS: BP 157/81
[2022-10-23 02:49] VITALS: BP 158/88
--- NOTE | 2022-10-23 05:56 | NUR ---
AMBULATING SBA WITH FWW. PT REPORTS OXY 10 MG "FEELS LIKE A PLACEBO PILL", NOT EFFECTIVE. PT REQUESTED TESSALON DUE TO PAIN WITH COUGHING.
[2022-10-23 07:29] VITALS: BP 167/102
[2022-10-23 14:57] VITALS: BP 145/77
--- NOTE | 2022-10-23 16:58 | NUR ---
DAYSHIFT SUMMARY Patient reported she thinks the oxycodone is a placebo, and ineffective for pain control. Reported her pain was well managed with the morphine. Reported patients concerns to MD, new orders to increase Fentynal patch to 50mcg & increase Oxycodone to 15mg. Patient reports pain is 8-10/10 t/o the day. Medicated per MD orders. Patient resting in bed t/o day. She ambulated to , took a shower with staff SBA. Worked with physical therapy today. Ambulating well, gait is unsteady at times. Patient appears comfortable, only c/o pain when respositioning in bed. Patient receiving Augmentin ABX. Vitals stable, will continue plan of care.
[2022-10-23 19:38] VITALS: BP 158/90
[2022-10-24 05:49] VITALS: BP 175/96
[2022-10-24 06:11] LABS: BASOPHILS ABSOLUTE AUTO 0.02 K/mm3 (0.00-0.23); BASOPHILS PERCENT AUTO 0 % (0-2); EOSINOPHILS ABSOLUTE AUTO 0.23 K/mm3 (0.00-0.68); EOSINOPHILS PERCENT AUTO 4 % (0-6); Hematocrit 32.1 % (33.0-51.0); Hemoglobin 10.1 g/dL (11.5-16.0); IMMATURE GRAN ABSOLUTE AUTO 0.02 K/mm3 (0.00-0.10); IMMATURE GRAN PERCENT AUTO 0 % (0-1); LYMPHOCYTES ABSOLUTE AUTO 1.61 K/mm3 (0.84-5.20); LYMPHOCYTES PERCENT AUTO 29 % (21-46); MONOCYTES ABSOLUTE AUTO 0.29 K/mm3 (0.16-1.47); MONOCYTES PERCENT AUTO 5 % (4-13); Mean Corpuscular HGB 28.2 pg (26.0-34.0); Mean Corpuscular HGB Conc 31.5 g/dL (31.5-36.5); Mean Corpuscular Volume 90 fL (80-100); Mean Platelet Volume 8.6 fL (9.1-12.4); NEUTROPHILS ABSOLUTE AUTO 3.46 K/mm3 (1.96-9.15); NEUTROPHILS PERCENT AUTO 61 % (41-73); Platelet Count 273 K/mm3 (150-400); RDW Coefficient Variation 15.9 % (11.7-14.2); RDW Standard Deviation 52.1 fL (35.1-46.3); Red Blood Cell Count 3.58 M/mm3 (3.80-5.20); White Blood Cell Count 5.63 K/mm3 (4.00-11.30)
[2022-10-24 06:29] LABS: Albumin, Blood 2.6 g/dL (3.4-5.0); Anion Gap 2 mmol/L (6-16); Blood Urea Nitrogen 13 mg/dL (8-24); Bun/Creatinine Ratio 24.1 (12.0-20.0); CO2, Blood 29 mmol/L (21-32); Chloride, Blood 107 mmol/L (98-108); Creatinine, Blood 0.54 mg/dL (0.40-1.00); Glomerular Filtration Rate 99 (60-); Glucose, Blood 125 mg/dL (70-99); Phosphorus, Blood 3.9 mg/dL (2.5-4.9); Potassium, Blood 3.9 mmol/L (3.5-5.5); Sodium, Blood 138 mmol/L (136-145)
[2022-10-24 07:40] VITALS: BP 168/95
--- NOTE | 2022-10-24 15:21 | NUR ---
SHIFT SUMMARY PT AWAKE DURING SHIFT REPORT. PLEASANT AND CO-OP WITH CARE. MEDICATED X1 TO PRESENT FOR C/O R SIDE RIB PAIN. SCATTERED BUE BRUISING FROM FALL AT HOME. PO ABX GIVEN FOR PNM AND UTI. PT IS MORBIDLY OBESE. 1P SBA USING FWW TO BTHRM. BED ALARM ON FOR SAFETY, BUT PT DOES CALL FOR ASSIST. RESTING QUIETLY READING HER BOOK. DENIES FURTHER NEEDS AT THIS TIME. CALL LT IN REACH.
[2022-10-24 16:30] VITALS: BP 159/100
[2022-10-24 21:37] VITALS: BP 143/85
[2022-10-24] MEDS ORDERED: GABA300 PO (23:45)
[2022-10-24] MEDS ORDERED: OXYC10TA19 PO (23:49)
[2022-10-25 03:04] VITALS: BP 163/102
--- NOTE | 2022-10-25 05:40 | NUR ---
A/OX3-4; FORGETFUL AT TIMES. PLEASANT /COOPERATIVE /CALM. HTN: 159/100; REPORTED TO MD - NO NEW ORDERS AT THIS TIME (SCHEDULED ANTIHYPERTENSIVES AT 0900). C/O 8/10 PAIN TO R-SIDE OF RIBCAGE; PRN ANALGESICS PER EMAR; HELPFUL PER PATIENT. TAKES PILLS WHOLE WITH WATER. SLEEP PROMOTED. BED ALARM SET. CALL LIGHT IN REACH; ENCOURAGED TO MAKE NEEDS KNOWN.
[2022-10-25 07:38] VITALS: BP 161/108
[2022-10-25 09:35] LABS: BASOPHILS ABSOLUTE AUTO 0.04 K/mm3 (0.00-0.23); BASOPHILS PERCENT AUTO 1 % (0-2); EOSINOPHILS ABSOLUTE AUTO 0.21 K/mm3 (0.00-0.68); EOSINOPHILS PERCENT AUTO 3 % (0-6); Hematocrit 36.1 % (33.0-51.0); Hemoglobin 11.5 g/dL (11.5-16.0); IMMATURE GRAN ABSOLUTE AUTO 0.03 K/mm3 (0.00-0.10); IMMATURE GRAN PERCENT AUTO 0 % (0-1); LYMPHOCYTES PERCENT AUTO 24 % (21-46); MONOCYTES ABSOLUTE AUTO 0.29 K/mm3 (0.16-1.47); MONOCYTES PERCENT AUTO 4 % (4-13); Mean Corpuscular HGB 28.3 pg (26.0-34.0); Mean Corpuscular HGB Conc 31.9 g/dL (31.5-36.5); Mean Corpuscular Volume 89 fL (80-100); Mean Platelet Volume 8.7 fL (9.1-12.4); NEUTROPHILS ABSOLUTE AUTO 5.02 K/mm3 (1.96-9.15); NEUTROPHILS PERCENT AUTO 68 % (41-73); Platelet Count 315 K/mm3 (150-400); RDW Coefficient Variation 15.9 % (11.7-14.2); RDW Standard Deviation 51.9 fL (35.1-46.3); Red Blood Cell Count 4.07 M/mm3 (3.80-5.20); White Blood Cell Count 7.39 K/mm3 (4.00-11.30)
[2022-10-25 09:53] LABS: Albumin, Blood 2.9 g/dL (3.4-5.0); Albumin/Globulin Ratio 0.7 (0.8-1.8); Bilirubin, Total 0.3 mg/dL (0.1-1.0); Bun/Creatinine Ratio 23.5 (12.0-20.0); Calcium, Blood 9.3 mg/dL (8.5-10.1); Creatinine, Blood 0.55 mg/dL (0.40-1.00); Globulin, Blood 4.3 g/dL (2.2-4.0); Potassium, Blood 3.8 mmol/L (3.5-5.5); Total Protein, Blood 7.2 g/dL (6.4-8.2)
[2022-10-25 10:04] VITALS: BP 132/84
--- NOTE | 2022-10-25 13:09 | NUR ---
PT TRANSFER WITHIN UNIT. PT IS ALERT AND ORIENTED X4. 2L NC RESTING COMFORTABLE IN BED.
--- NOTE | 2022-10-25 14:04 | NUR ---
PATIENT REPORT GIVEN TO CALEB AND TRANSFERRED FROM UNIT APPROX 1130AM AND TRANSFERRED WITHIN UNIT. REPORT GIVEN TO CLAU ELLIS
--- NOTE | 2022-10-25 14:08 | NUR ---
THIS DIKE SUPERVISOR HAS REVIEWED AND AGREES WITH ALL ASSESSMENTS AND NOTES BY CLAU CRESENCIO.
[2022-10-25 16:49] VITALS: BP 153/99
--- NOTE | 2022-10-25 16:59 | NUR ---
SHIFT SUMMARY NO ACUTE CHANGES SINCE I TOOK CARE OF THE PT. TREATED PAIN PER EMAR.
[2022-10-25 19:35] VITALS: BP 133/88
[2022-10-26 02:41] VITALS: BP 167/86
--- NOTE | 2022-10-26 04:06 | NUR ---
SHIFT SUMMARY ADMIT FOR PNEUMONIA. DNR CODE. PLAN IS FOR PLACEMENT. SHE IS A&O X4. STANDBY ASSIST W/BRP. RECENT FALL AT HOME, BROKEN RIBS REPORTED. HX OF CHF, COPD, CHRONIC BACK PAIN. REGULAR DIET. PT REQUESTED TESSALON PEARLS AND RT TX THIS SHIFT. ON RA. CONTINENT.
[2022-10-26 06:12] LABS: Bun/Creatinine Ratio 28.6 (12.0-20.0); Calcium, Blood 8.8 mg/dL (8.5-10.1); Creatinine, Blood 0.56 mg/dL (0.40-1.00); Potassium, Blood 3.8 mmol/L (3.5-5.5)
[2022-10-26 08:26] VITALS: BP 156/97
[2022-10-26 15:50] VITALS: BP 132/86
--- NOTE | 2022-10-26 16:48 | NUR ---
SHIFT SUMMARY NO ACUTE CHANGES THIS SHIFT, PT REMAINS AOX4 AND A SBA WITH THE FWW. SHE CALLS WELL AND WILL LET YOU KNOW WHEN SHE NEEDS ASSISTANCE. SHE HAS C/O PAIN T/O THE SHIFT, MEDICATED PER THE EMAR. PLAN IS FOR HER TO GO TO [facility] IN THE NEXT COUPLE DAYS, JUST WAITING FOR A BED TO OPEN UP. SHE WAS A BIT TEARFUL TODAY, TALKING ABOUT GETTING RID OF A COUPLE OF HER CATS. TRIED TO CONSOLE BUT SHE DID SEEM UPSET. SHE IS POLITE AND COOPERATIVE WITH CARE. BED IN THE LOWEST POSITION, CALL LIGHT IS WITHIN REACH. WILL REPORT TO ONCOMING NURSE.
[2022-10-26 20:41] VITALS: BP 150/103
[2022-10-27 05:03] LABS: BASOPHILS ABSOLUTE AUTO 0.03 K/mm3 (0.00-0.23); BASOPHILS PERCENT AUTO 1 % (0-2); EOSINOPHILS ABSOLUTE AUTO 0.19 K/mm3 (0.00-0.68); EOSINOPHILS PERCENT AUTO 4 % (0-6); Hematocrit 33.9 % (33.0-51.0); Hemoglobin 10.8 g/dL (11.5-16.0); IMMATURE GRAN ABSOLUTE AUTO 0.03 K/mm3 (0.00-0.10); IMMATURE GRAN PERCENT AUTO 1 % (0-1); LYMPHOCYTES ABSOLUTE AUTO 1.68 K/mm3 (0.84-5.20); LYMPHOCYTES PERCENT AUTO 32 % (21-46); MONOCYTES ABSOLUTE AUTO 0.34 K/mm3 (0.16-1.47); MONOCYTES PERCENT AUTO 6 % (4-13); Mean Corpuscular HGB Conc 31.9 g/dL (31.5-36.5); Mean Corpuscular Volume 88 fL (80-100); Mean Platelet Volume 8.8 fL (9.1-12.4); NEUTROPHILS ABSOLUTE AUTO 3.05 K/mm3 (1.96-9.15); NEUTROPHILS PERCENT AUTO 57 % (41-73); Platelet Count 282 K/mm3 (150-400); RDW Coefficient Variation 15.7 % (11.7-14.2); RDW Standard Deviation 50.4 fL (35.1-46.3); Red Blood Cell Count 3.86 M/mm3 (3.80-5.20); White Blood Cell Count 5.32 K/mm3 (4.00-11.30)
[2022-10-27 05:18] LABS: Bun/Creatinine Ratio 31.8 (12.0-20.0); Calcium, Blood 9.2 mg/dL (8.5-10.1); Creatinine, Blood 0.57 mg/dL (0.40-1.00); Potassium, Blood 3.8 mmol/L (3.5-5.5)
[2022-10-27 06:13] VITALS: BP 164/97
[2022-10-27 07:15] VITALS: BP 148/85
[2022-10-27 09:00] VITALS: BP 142/79
[2022-10-27 16:42] VITALS: BP 120/77
--- NOTE | 2022-10-27 16:45 | NUR ---
SHIFT SUMMARY PT AXO, PLEASANT AND COOPERATIVE WITH CARE. UP WITH 1 ASSIST, FWW AND GB. VSS. NO ACUTE CHANGES THIS SHIFT. MEDICATED FOR PAIN PER EMAR. PATIENT WORKED WITH PHYSICAL THERAPY, SEE NOTE. IV DC'D THIS SHIFT, NO IV ACCESS ORDER IN PLACE AT THIS TIME. BED IN LOW POSITON, CALL LIGHT WITHIN REACH. [place] STAFF ASSESSED PT THIS SHIFT.
[2022-10-27 19:34] VITALS: BP 153/78
[2022-10-28] VITALS (7 sets, daily range): BP systolic 106–181; BP diastolic 74–112
--- NOTE | 2022-10-28 04:57 | NUR ---
AO, COOPERATIVE, HYPERTENSIVE AT TIMES BUT VSS, UP TO TOILET SBA WITH WALKER, GAIT IS STEADY. OXY 15 MG AND TYLENOL GIVEN PRN WITH FENTANYL PATCH IN PLACE FOR PAIN. NO SIGNIFICANT CHANGES DURING SHIFT.
--- NOTE | 2022-10-28 17:20 | NUR ---
SHIFT SUMMARY PT A&OX4 AND IN PLEASENT MOOD T/O SHIFT. CALL LIGHT W/IN REACH. RESTING IN BED T/O SHIFT, TOLERATING PO INTAKE WELL. FAMILY/FRIENDS IN TO SEE PT T/O VISITING HOURS. C/O PAIN MEDICATED PER EMAR. VSS. PROBABLE DC ON TUESDAY TO .
[2022-10-29 04:39] VITALS: BP 153/89
--- NOTE | 2022-10-29 06:33 | NUR ---
NO SIGNIFICANT CHANGES THIS SHIFT. AWAITING PLACEMENT IN NUSRAT. WALKED TO TOILET WITH FWW AND SBA. RA, AO, CALLS APPROPRIATELY. OXYCODONE 15 MG X2. MIRALAX GIVEN ORDERED, NO BM.
[2022-10-29 07:42] VITALS: BP 143/89
--- NOTE | 2022-10-29 09:05 | NUR ---
Spiritual Care Consult: Nurse Request Pt. is awake in bed and welcomes my visit. Pt. is unsettled by the prospect of moving into assisted living. Pt. verbalized that the plan is to be discharge to assited living facility on Tuesday. Listen with Empathy and a calming presence. Pt. displays evidence of trust and begins to share freely. Facilitate a life review which reveals years family unit complications and dysfunction. Pt. verbalizes that the result of this brokenness has left her far from God. Through theraputic listening and a focus on the scriptures Pt. began to display lower anxiety. More Pastoral psychosocial rehabilitation counselor is given. Prayed with Pt. Pt. verbalized gratitude for the spiritual care visit.
[2022-10-29 15:25] VITALS: BP 133/81
--- NOTE | 2022-10-29 18:44 | NUR ---
SHIFT SUMMARY PT A&OX4 AND IN PLEASENT MOOD T/O SHIFT. UP TO SHOWER IND. PAIN MEDICATED PER EMAR. VSS. CALL LIGHT W/IN REACH. TOLERATING PO INTAKE WELL, SM BM THIS SHIFT. PLAN TO TRANSFER TO ASSISTED LIVING FACILITY ON TUESDAY.
[2022-10-29 20:05] VITALS: BP 150/92
[2022-10-30 02:49] VITALS: BP 172/96
[2022-10-30 04:03] VITALS: BP 151/95
--- NOTE | 2022-10-30 04:13 | NUR ---
SHIFT SUMMARY; NO ACUTE CHANGES OVERNIGHT. THE PT IS AXO X4 AND INDEPENDENT IN THE ROOM. THE PT HAS BEEN SLEEPING FOR THE MAJORITY OF THE NIGHT. THE PT HAS REQUESTED PAIN MEDICATION ONCE THIS SHIFT IN RELATION TO HER RIB FX'S. THE PT OTHERWISE DENIES ANY PAIN, CHEST PAIN/PRESSURE, SOB OR N/V. CURRENTLY THE PT IS SLEEPING IN BED WITH THE BED IN THE LOWEST POSITION AND THE CALL LIGHT AT BEDSIDE.
[2022-10-30 07:25] VITALS: BP 167/91
[2022-10-30 15:57] VITALS: BP 149/91
--- NOTE | 2022-10-30 16:58 | NUR ---
SHIFT SUMMARY PATIENT IS ALERT AND ORIENTED. PATIENT HAS HAD NO ACUTE EVENTS THIS SHIFT. VITAL SIGNS REVIEWED. PATIENT HAS REQUESTED PAIN MEDICATION FREQUENT ALLOWED FOR RIB AND CHRONIC BACK PAIN. PATIENT HAS RESTED AND HAS HAD FAMILY VISIT. PLANNED DISCHARGE ON TUESDAY OR TUESDAY. PATIENT HAS BEEN PLEASENT AND COOPERATIVE WITH CARE. BED IN LOCKED AND LOWEST POSITION. CALL LIGHT IN PLACE. WILL MONITOR UNTIL SHIFT CHANGE.
[2022-10-30 20:08] VITALS: BP 142/88
--- NOTE | 2022-10-31 04:04 | NUR ---
SHIFT SUMMARY; NO ACUTE CHANGES OVERNIGHT. THE PT IS AXO X4 AND INDEPENDENT IN THE ROOM. THE PT HAS BEEN RESTING IN HER BED FOR THE ENTIRTY OF THE NIGHT. THE PT REPORTS PAIN R/T TO HER RIB FRACTURES. THE PT DENIES ANY SOB, CHEST PAIN/PRESSURE OR N/V. CURRENTLY THE PT IS SLEEPING IN BED WITH THE BED IN THE LOWEST POSITION AND THE CALL LIGHT AT BEDSIDE.
[2022-10-31 04:17] VITALS: BP 174/96
[2022-10-31 05:07] VITALS: BP 158/78
[2022-10-31 07:09] VITALS: BP 151/92
[2022-10-31 15:10] VITALS: BP 132/75
--- NOTE | 2022-10-31 15:59 | NUR ---
SHIFT SUMMARY PATIENT IS ALERT AND ORIENTED. PATIENT HAS HAD NO ACUTE EVENTS THIS SHIFT. VITAL SIGNS REVIEWED. PATIENT HAS BEEN IND THIS SHIFT. PATIENT HAS BEEN PLEASENT AND COOPERATIVE WITH CARE THIS SHIFT. PATIENT HAS REQUIRED Q6 PAIN MEDICATION. PATIENT HAS NOT COMPLAINED OF SOB, NAUSEA, OR VOMITTING THIS SHIFT. PATIENT IS AWAITING PLACEMENT. BED IN LOCKED AND LOWEST POSITION. CALL LIGHT IN PLACE. WILL MONITOR UNTIL SHIFT CHANGE.
[2022-10-31 20:43] VITALS: BP 143/73
--- NOTE | 2022-11-01 05:05 | NUR ---
SHIFT SUMMARY; NO ACUTE CHANGES OVERNIGHT. THE PT HAS BEEN SLEEPING FOR THE ENTIRETY OF THE NIGHT. THE PT IS INDEPENDENT IN THE ROOM. THE PT HAS REQUESTED Q6 OXYCODONE IT BECOMES AVAILABLE FOR RIB PAIN. THE PT DENIES ANY SOB, CHEST PAIN/PRESSURE OR N/V THIS SHIFT. CURRENTLY THE PT IS RESTING IN BED WITH THE BED IN THE LOWEST POSITION AND THE CALL LIGHT AT BEDSIDE.
[2022-11-01 06:29] VITALS: BP 165/85
[2022-11-01 07:25] VITALS: BP 166/95
[2022-11-01 15:11] VITALS: BP 131/80
[2022-11-01] MEDS ORDERED: GABA300 PO (16:14)
[2022-11-01] MEDS ORDERED: FENTANYL1 EAC7 TOP (16:15)
[2022-11-01] MEDS ORDERED: DOCUZEN 8.6-501 EACH PO (16:16)
[2022-11-01] MEDS ORDERED: MIRALAX17 GM PO (16:16)
[2022-11-01] MEDS ORDERED: VISBIOME 112.51 EACH PO (16:16)
[2022-11-01] MEDS ORDERED: OXYC10TA19 PO (16:17)
--- NOTE | 2022-11-01 16:20 | NUR ---
SHIFT SUMMARY PATIENT IS ALERT AND ORIENTED. PATIENT IS IND IN ROOM. PATIENT HAS HAD NO ACUTE EVENTS THIS SHIFT. PATIENT HAS REQUIRED Q6 PAIN MEDICATION. PATIENT HAS NOT COMPLAINED OF SOB, NAUSEA, OR VOMITTING. PATIENT HAS DISCHARGE ORDERS, THERE WERE PROBLEMS WITH BED DELIVERY AND DISCHARGE TOMORROW IS PROBABLE. PATIENT BECAME EMOTIONAL ABOUT NOT LEAVING BUT WAS REASSURED. BED IN LOCKED AND LOWEST POSITION. CALL LIGHT IN PLACE. WILL MONITOR UNTIL SHIFT CHANGE.
[2022-11-01 20:24] VITALS: BP 128/74
[2022-11-02 02:32] VITALS: BP 156/76
--- NOTE | 2022-11-02 06:36 | NUR ---
CANNERY WORKER SUMMARY ASSUMED CARE OF THE PT AT 1900. SHE IS ALERT AND ORIENTED X4, FOLLOWS COMMANDS. MOSTLY INDEPENDENT IN THE ROOM. MEDICATED X1 FOR PAIN THIS SHIFT, OTHERWISE SLEPT. BREATH SOUNDS CLEAR BUT DIMINISHED. CONTINUES TO HAVE RIB PAIN. NO BM THIS SHIFT. NO ACUTE EVENTS.
[2022-11-02 07:31] VITALS: BP 147/71
--- NOTE | 2022-11-02 12:22 | NUR ---
PT DISCHARGED TO [facility]. CALLED [facility] AND GAVE REPORT TO NURSE, JULES. PT DID NOT HAVE IV. HELPED PT TO DRESS. ALL BELONGINGS SENT WITH PT. PT TRANSPORTED BY WHEELCHAIR TO FACILITY. DISCHARGE PACKET AND MECIATIONS SCRIPTS GIVEN TO TRANSPORTER WITH INSTRUCTIONS TO GIVE TO [facility].
== END 2022-11-02 12:15 | disposition home or self-care (01) ==
LOC: ER 00:13 → MEDS 00:14 → PCU 00:14 → ERHOLD 00:14 → PCU 04:37 → MEDS 18:00
PROVIDERS: Family Medicine; Internal Medicine; Student in an Organized Health Care Education/Training Program; ADMIT Internal Medicine
DX: J18.9 Pneumonia, unspecified organism (principal); D72.829 Elevated white blood cell count, unspecified; T40.601A Poisoning by unspecified narcotics, accidental (unintentional), initial encounter; G89.4 Chronic pain syndrome; S22.49XA Multiple fractures of ribs, unspecified side, initial encounter for closed fracture; J44.9 Chronic obstructive pulmonary disease, unspecified; K21.9 Gastro-esophageal reflux disease without esophagitis; I11.0 Hypertensive heart disease with heart failure; I50.9 Heart failure, unspecified; E78.00 Pure hypercholesterolemia, unspecified; E66.9 Obesity, unspecified; I25.10 Atherosclerotic heart disease of native coronary artery without angina pectoris; F31.9 Bipolar disorder, unspecified; W19.XXXA Unspecified fall, initial encounter; Z88.8 Allergy status to other drugs, medicaments and biological substances; Z20.822 Contact with and (suspected) exposure to COVID-19
CPT/HCPCS: 0241U; 36415; 51701; 70450; 71046; 80048; 80053; 80069; 81001; 82803; 83605; 83690; 83880; 85025; 87040; 87086; 93005; 93010; 94640; 94664; 94760; 94762; 96365; 96366; 96372; 96374-59; 96375; 96376; 97110; 97112; 97116; 97161; 97165; 97530; 97535; 99285-25; A9270; G0378; J0692; J0696; J1650; J2270; J2310; J3370; J7030; J7050

== ENCOUNTER 2022-12-09 10:15 | Emergency (ER) | payer OTHER ==
[~2022-12-09] VITALS: Ht 154.9 cm; Wt 45.8 kg
[~2022-12-09 10:15] MED LIST changes: +DOCUZEN 8.6-501 EACH PO; +FENTANYL1 EAC7 TOP; +MIRALAX17 GM PO; +OXYC10TA19 PO; +VISBIOME 112.51 EACH PO
[2022-12-09 10:28] VITALS: BP 163/104
== END 2022-12-09 12:30 | disposition home or self-care (01) ==
LOC: ER 10:15 → ATC 10:15
DX: R07.89 Other chest pain (principal); R07.81 Pleurodynia; I10 Essential (primary) hypertension; J45.909 Unspecified asthma, uncomplicated; F17.200 Nicotine dependence, unspecified, uncomplicated; Z88.8 Allergy status to other drugs, medicaments and biological substances; Z79.82 Long term (current) use of aspirin; Z79.899 Other long term (current) drug therapy
CPT/HCPCS: 71046; J1885

== ENCOUNTER 2024-07-01 23:22 | Observation (INO) | payer OTHER ==
[~2024-07-01] VITALS: Ht 154.9 cm; Wt 65.8 kg
[~2024-07-01 23:22] MED LIST changes: +FURO20 PO; +GABA600 PO; +LISI5 PO; +OXYACE7.5T PO; +PROAIR DIGIHAL90 MCG INH; +PROLIA60 MG/1 ML SC; -ROSU10TA PO; +ROSUVASTATIN CA10 MG PO; +VENL75ER PO; +VITAMIN D5000 UNIT PO
[2024-07-01 23:45] LABS: BASOPHILS ABSOLUTE AUTO 0.02 K/mm3 (0.00-0.23); BASOPHILS PERCENT AUTO 0 % (0-2); EOSINOPHILS ABSOLUTE AUTO 0.03 K/mm3 (0.00-0.68); EOSINOPHILS PERCENT AUTO 1 % (0-6); Hematocrit 30.7 % (33.0-51.0); Hemoglobin 10.1 g/dL (11.5-16.0); IMMATURE GRAN ABSOLUTE AUTO 0.02 K/mm3 (0.00-0.10); IMMATURE GRAN PERCENT AUTO 0 % (0-1); LYMPHOCYTES ABSOLUTE AUTO 0.51 K/mm3 (0.84-5.20); LYMPHOCYTES PERCENT AUTO 11 % (21-46); MONOCYTES ABSOLUTE AUTO 0.19 K/mm3 (0.16-1.47); MONOCYTES PERCENT AUTO 4 % (4-13); Mean Corpuscular HGB 29.6 pg (26.0-34.0); Mean Corpuscular HGB Conc 32.9 g/dL (31.5-36.5); Mean Corpuscular Volume 90 fL (80-100); Mean Platelet Volume 9.3 fL (9.1-12.4); NEUTROPHILS ABSOLUTE AUTO 3.71 K/mm3 (1.96-9.15); NEUTROPHILS PERCENT AUTO 83 % (41-73); Platelet Count 147 K/mm3 (150-400); Red Blood Cell Count 3.41 M/mm3 (3.80-5.20); White Blood Cell Count 4.48 K/mm3 (4.00-11.30)
[2024-07-01 23:58] LABS: Albumin, Blood 2.9 g/dL (3.4-5.0); Albumin/Globulin Ratio 0.9 (0.8-1.8); Bilirubin, Total 0.3 mg/dL (0.1-1.0); Bun/Creatinine Ratio 21.2 (12.0-20.0); Calcium, Blood 8.5 mg/dL (8.5-10.1); Creatinine, Blood 0.8 mg/dL (0.40-1.00); Globulin, Blood 3.1 g/dL (2.2-4.0); Potassium, Blood 3.9 mmol/L (3.5-5.5)
[2024-07-02 00:13] LABS: Influenza B, PCR NEGATIVE (NEGATIVE); Resp Syncytial Virus, PCR NEGATIVE (NEGATIVE); SARS-Cov-2 (COVID-19) PCR, MMC NEGATIVE (NEGATIVE)
[2024-07-02 00:24] LABS: Influenza A, PCR POSITIVE (NEGATIVE)
[2024-07-02] MEDS ORDERED: Acetaminophen 500 MG Tab ONE (00:30)
[2024-07-02] MEDS ORDERED: Acetaminophen 500 MG Tab PO ONE ×2 (00:40→23:55)
[2024-07-02] MEDS ORDERED: Azithromycin 500 MG in NS 250 ML IV ONE (01:50)
[2024-07-02] MEDS ORDERED: CefTRIAXone Sodium 1,000 MG in NS 50 ML IV ONE (01:50)
[2024-07-02] MEDS ORDERED: Albuterol 2.5 MG/3 ML VIAL INH PRN (02:45)
[2024-07-02] MEDS ORDERED: Sennosides 8.6 MG Tab PO PRN (02:50)
[2024-07-02] MEDS ORDERED: FLU VACC TS2024-25(6MOS UP)/PF 45 MCG/0.5 ML SYRINGE IM ONE (02:50)
[2024-07-02] MEDS ORDERED: Polyethylene Glycol 3350 17 gm PO PRN (02:55)
[2024-07-02] MEDS ORDERED: Acetaminophen 325 MG TABLET PO PRN (02:55)
[2024-07-02] MEDS ORDERED: POTA10T PO (03:39)
[2024-07-02] MEDS ORDERED: Mometasone/Formoterol MDI 200/5 mcg 13 GM INH SCH (03:55)
[2024-07-02] MEDS ORDERED: Oseltamivir Phosphate 75 MG Cap PO ONE (04:00)
[2024-07-02 04:23] VITALS: BP 113/66
[2024-07-02] MEDS ORDERED: DOCU100 PO (04:28)
[2024-07-02] MEDS ORDERED: Calcium Carbon500 MG PO ×2 (04:28→04:39)
[2024-07-02] MEDS ORDERED: METAMUCIL POWD798 GM PO (04:30)
[2024-07-02] MEDS ORDERED: NICOTINE LOZENGE2 MG MM (04:32)
[2024-07-02] MEDS ORDERED: ALBU3IS INH (04:36)
[2024-07-02] MEDS ORDERED: ARTIFICIAL TEAR15 M2 BOTHEYES (04:36)
[2024-07-02] MEDS ORDERED: BENZ100A PO (04:37)
[2024-07-02] MEDS ORDERED: BISA10S PR (04:37)
[2024-07-02] MEDS ORDERED: BUSP5 PO (04:38)
[2024-07-02] MEDS ORDERED: CALMOSEPTINE TOP (04:40)
[2024-07-02] MEDS ORDERED: CYCL10 PO (04:40)
[2024-07-02] MEDS ORDERED: LOPE2C PO (04:41)
[2024-07-02] MEDS ORDERED: GUAI600T33 PO (04:41)
[2024-07-02] MEDS ORDERED: Fexofenadine HC60 MG PO (04:41)
[2024-07-02] MEDS ORDERED: DULCOLAX400 MG/5 M PO (04:42)
[2024-07-02] MEDS ORDERED: NARCAN4 M1 (04:43)
[2024-07-02] MEDS ORDERED: NYAMYC15 G1 TOP (04:44)
[2024-07-02] MEDS ORDERED: ONDA4ODT MM (04:44)
[2024-07-02] MEDS ORDERED: OXYACE7.5T PO (04:45)
[2024-07-02] MEDS ORDERED: MIRALAX11910 PO (04:46)
[2024-07-02] MEDS ORDERED: Fleet Enema132 ML PR (04:46)
[2024-07-02 05:25] LABS: BASOPHILS ABSOLUTE AUTO 0.01 K/mm3 (0.00-0.23); BASOPHILS PERCENT AUTO 0 % (0-2); EOSINOPHILS ABSOLUTE AUTO 0.02 K/mm3 (0.00-0.68); EOSINOPHILS PERCENT AUTO 1 % (0-6); Hematocrit 32.5 % (33.0-51.0); Hemoglobin 10.5 g/dL (11.5-16.0); IMMATURE GRAN ABSOLUTE AUTO 0.02 K/mm3 (0.00-0.10); IMMATURE GRAN PERCENT AUTO 1 % (0-1); LYMPHOCYTES ABSOLUTE AUTO 0.47 K/mm3 (0.84-5.20); LYMPHOCYTES PERCENT AUTO 13 % (21-46); MONOCYTES ABSOLUTE AUTO 0.14 K/mm3 (0.16-1.47); MONOCYTES PERCENT AUTO 4 % (4-13); Mean Corpuscular HGB 29.4 pg (26.0-34.0); Mean Corpuscular HGB Conc 32.3 g/dL (31.5-36.5); Mean Corpuscular Volume 91 fL (80-100); Mean Platelet Volume 9.3 fL (9.1-12.4); NEUTROPHILS ABSOLUTE AUTO 3.09 K/mm3 (1.96-9.15); NEUTROPHILS PERCENT AUTO 83 % (41-73); Platelet Count 131 K/mm3 (150-400); RDW Coefficient Variation 14.1 % (11.7-14.2); RDW Standard Deviation 47.3 fL (35.1-46.3); Red Blood Cell Count 3.57 M/mm3 (3.80-5.20); White Blood Cell Count 3.75 K/mm3 (4.00-11.30)
[2024-07-02] MEDS ORDERED: Omeprazole 20 MG CapCR PO SCH (06:00)
[2024-07-02 06:31] LABS: Albumin/Globulin Ratio 0.9 (0.8-1.8); Bilirubin, Total 0.4 mg/dL (0.1-1.0); Bun/Creatinine Ratio 17.2 (12.0-20.0); Creatinine, Blood 0.76 mg/dL (0.40-1.00); Globulin, Blood 3.2 g/dL (2.2-4.0); Potassium, Blood 3.8 mmol/L (3.5-5.5); Total Protein, Blood 6.2 g/dL (6.4-8.2)
[2024-07-02 07:35] VITALS: BP 113/60
[2024-07-02] MEDS ORDERED: Potassium Chloride 10 Meq Tablet SA PO SCH (08:00)
[2024-07-02] MEDS ORDERED: BusPIRone HCl 5 MG Tab PO PRN (08:55)
[2024-07-02] MEDS ORDERED: OxyCODONE 7.5 mg/Acetam 325 mg TABLET PO PRN (08:55)
[2024-07-02] MEDS ORDERED: Metoprolol Tartrate 25 MG Tab PO SCH (09:00)
[2024-07-02] MEDS ORDERED: Venlafaxine HCl 75 MG CapCR PO SCH (09:00)
[2024-07-02] MEDS ORDERED: Aspirin 81 MG Chew PO SCH (09:00)
[2024-07-02] MEDS ORDERED: Furosemide 20 MG Tab PO SCH (09:00)
[2024-07-02] MEDS ORDERED: Gabapentin 300 MG Cap PO SCH (09:00)
[2024-07-02] MEDS ORDERED: LamoTRIgine 100 MG Tab PO SCH (09:00)
[2024-07-02] MEDS ORDERED: Enoxaparin 40 MG/0.4 ML SYR SC SCH (09:00)
[2024-07-02] MEDS ORDERED: Isosorbide Mononitrate 30 MG TABCR PO SCH (09:00)
[2024-07-02] MEDS ORDERED: Cholecalciferol 1000 Unit Tablet (=25MCG) PO SCH (09:00)
[2024-07-02] MEDS ORDERED: Lactobacil 2-S.Thermo-Bifido 1 1 Cap PO SCH (09:00)
--- NOTE | 2024-07-02 10:15 | NUR ---
PER DR. PERSAUD, REMOVE 02 VIA NC FROM PT TO ATTEMPT ROOM AIR. 02 CHECKED ABOUT 30 MINUTES LATER WITH A READING OF 86%. 2L O2 PLACED BACK ON PT WITH 02 READING OF 93%.
[2024-07-02 11:11] LABS: Source, Urine Clean Catch
[2024-07-02 11:24] LABS: Appearance, Urine Clear (Clear); Bilirubin, Urine Neg (Neg); Blood, Urine 2+ (Neg); Color, Urine Yellow (P-Yellow); Glucose Qualitative, Urine Neg (Neg); Ketones, Urine Neg (Neg); Leukocyte Esterase, Urine Neg (Neg); Nitrite, Urine Neg (Neg); Protein, Urine 1+ (Neg); Urobilinogen, Urine NORM (Normal)
[2024-07-02 11:35] LABS: White Blood Cells, Urine 0-2 /hpf (0-5)
[2024-07-02 11:36] LABS: Bacteria Few /hpf; Squamous Epithelial Cells Few /hpf (Few)
[2024-07-02 15:31] VITALS: BP 106/56
[2024-07-02] MEDS ORDERED: OSELTAMIVIR PHO PO (15:51)
[2024-07-02 19:16] VITALS: BP 129/69
--- NOTE | 2024-07-02 19:20 | NUR ---
SHIFT SUMMARY PT A&OX4. PT ADMITTED DUE TO ACUTE RESPIRATORY FAILURE WITH HYPOXIA. PT REPORTS SOB WITH AMBULATION. HAS CHRONIC BACK PAIN, MANAGED PER EMAR. LIZA CAME TO DELIVER O2 FOR HOME. PT ON 2L OF O2 VIA N/C AND 3L WITH MOVEMENT. PT SATS ARE 91%. PT WORKED WITH RESPIRTORY THERAPY TODAY. VSS. PT IS A SBA. PLAN FOR PT TO GO HOME IN MORNING. BED IN LOWEST POSITBLE POSITION. CALL LIGHT IN REACH
[2024-07-02] MEDS ORDERED: Oseltamvir Phosphate 30 MG Cap PO SCH (21:00)
[2024-07-02] MEDS ORDERED: Mirtazapine 15 MG SoluTab PO SCH (21:00)
[2024-07-02] MEDS ORDERED: Amitriptyline HCl 10 MG Tab PO SCH (21:00)
[2024-07-02] MEDS ORDERED: Rosuvastatin Calcium 10 MG Tab PO SCH (21:00)
[2024-07-03 03:20] VITALS: BP 120/78
[2024-07-03] MEDS ORDERED: Azithromycin 500 MG in NS 250 ML IV SCH (06:00)
[2024-07-03] MEDS ORDERED: CefTRIAXone Sodium 1,000 MG in NS 100 ML IV SCH (06:00)
--- NOTE | 2024-07-03 06:16 | NUR ---
SHIFT SUMMARY: Pt admitted for acute respiratory failure with hypoxia and is a DNR. is alert and able to make needs known. ADLs have been SBA. on contact ISO for influenza A. pain has been managed with PRN pain medication. Had 2LPM of o2 via NC to maintain spo2 greater than 88%.
--- NOTE | 2024-07-03 07:38 | NUR ---
DISCHARGE NOTE PT A&OX4. PT ADMITTED DUE TO ACUTE RESPIRATORY FAILURE WITH HYPOXIA. PT HAS A SPO2 OF 93% ON 2 L VIA N/C. VSS. PT WENT HOME WITH HOME O2 MACHINE FROM [facility]. PT GIVEN INSTRUCTIONS ON DISCHARGE/MEDS. PT ESCORTED BY WHEELCHAIR TO [facility]. PT LEFT AT 0730, AT START OF SHIFT.
--- NOTE | 2024-07-03 08:13 | NUR ---
ESCORTED PT TO [facility] SET UP BY CARE MANAGEMENT LAST NIGHT. PT ABLE TO TX SELF INTO CAR. BELONGINGS AND PORTABLE 02 WITH PT. PT REFUSED TO WEAR HER O2 STATING "I AM FINE, I WILL WEAR IT WHEN I NEED IT."
== END 2024-07-03 07:37 | disposition home or self-care (01) ==
LOC: ER 23:22 → MEDS 23:24 → ER 07-02 00:29 → MEDS 07-02 03:45 → ER 07-02 03:45 → MEDS 07-02 03:45 → ER 07-02 04:05 → MEDS 07-02 04:15
PROVIDERS: Emergency Medicine; Student in an Organized Health Care Education/Training Program; ADMIT Emergency Medicine
DX: J96.01 Acute respiratory failure with hypoxia (principal); J10.1 Influenza due to other identified influenza virus with other respiratory manifestations; J44.9 Chronic obstructive pulmonary disease, unspecified; I13.0 Hypertensive heart and chronic kidney disease with heart failure and stage 1 through stage 4 chronic kidney disease, or unspecified chronic kidney disease; N18.2 Chronic kidney disease, stage 2 (mild); I50.32 Chronic diastolic (congestive) heart failure; F31.9 Bipolar disorder, unspecified; K21.9 Gastro-esophageal reflux disease without esophagitis; I25.10 Atherosclerotic heart disease of native coronary artery without angina pectoris; G47.33 Obstructive sleep apnea (adult) (pediatric); E78.00 Pure hypercholesterolemia, unspecified; M79.7 Fibromyalgia; Z66 Do not resuscitate; Z87.891 Personal history of nicotine dependence; Z79.82 Long term (current) use of aspirin; Z79.84 Long term (current) use of oral hypoglycemic drugs; Z79.899 Other long term (current) drug therapy; Z88.8 Allergy status to other drugs, medicaments and biological substances; Z90.710 Acquired absence of both cervix and uterus; Z90.49 Acquired absence of other specified parts of digestive tract
CPT/HCPCS: 0241U; 36415; 71045; 76705; 80053; 81001; 83605; 83735; 84145; 85025; 87040; 93005; 93010; 94640; 94664; 94760; 94761; 96372; 96374; 96375; 96376; 99285-25; A9270; G0378; J0456; J0696; J1650; J7050

== ENCOUNTER → 2024-08-09 | Outpatient (CLI) | payer OTHER ==
[~2024-08-09] MED LIST changes: +ALBU3IS INH; +ARTIFICIAL TEAR15 M2 BOTHEYES; +BISA10S PR; +BUSP5 PO; +CALMOSEPTINE TOP; +Calcium Carbon500 MG PO; +DOCU100 PO; +DULCOLAX400 MG/5 M PO; +Fexofenadine HC60 MG PO; +Fleet Enema132 ML PR; +GUAI600T33 PO; +LOPE2C PO; +METAMUCIL POWD798 GM PO; +MIRALAX11910 PO; +NARCAN4 M1; +NICOTINE LOZENGE2 MG MM; +NYAMYC15 G1 TOP; +ONDA4ODT MM; +OSELTAMIVIR PHO PO; +POTA10T PO
== END ==
LOC: LAB 12:53 → LAB SHORT 12:53
DX: R30.0 Dysuria (principal)
CPT/HCPCS: 87086

== ENCOUNTER 2024-09-25 20:40 | Emergency (ER) | payer OTHER ==
[~2024-09-25] VITALS: Ht 160 cm; Wt 66.2 kg
[2024-09-25] MEDS ORDERED: Ketorolac Tromethamine 30mg Vial IV ONE (21:05)
[2024-09-25 22:30] VITALS: BP 101/64
== END 2024-09-25 22:53 | disposition home or self-care (01) ==
LOC: ER 20:40
DX: S43.001A Unspecified subluxation of right shoulder joint, initial encounter (principal); X58.XXXA Exposure to other specified factors, initial encounter; Z87.891 Personal history of nicotine dependence; J44.89 Other specified chronic obstructive pulmonary disease; K21.9 Gastro-esophageal reflux disease without esophagitis; I11.0 Hypertensive heart disease with heart failure; I50.9 Heart failure, unspecified; Z88.8 Allergy status to other drugs, medicaments and biological substances; Z79.899 Other long term (current) drug therapy; Z79.84 Long term (current) use of oral hypoglycemic drugs; Z79.02 Long term (current) use of antithrombotics/antiplatelets; Z79.82 Long term (current) use of aspirin; Z79.51 Long term (current) use of inhaled steroids; Z79.1 Long term (current) use of non-steroidal anti-inflammatories (NSAID); Z79.891 Long term (current) use of opiate analgesic
CPT/HCPCS: 73030; 96374; 99284-25; J1885

== ENCOUNTER 2024-10-29 11:08 | Emergency (ER) | payer OTHER ==
[~2024-10-29] VITALS: Ht 160 cm; Wt 72.6 kg
[2024-10-29] MEDS ORDERED: HYDROmorphone HCl/Pf 1MG SYR IV ONE (11:25)
[2024-10-29] MEDS ORDERED: Ondansetron HCl 2 MG / ML 2ML Vial IV ONE (11:25)
[2024-10-29] MEDS ORDERED: LUBRICANT OP (11:48)
[2024-10-29] MEDS ORDERED: propofoL 100 ML IV SCH (11:55)
[2024-10-29] MEDS ORDERED: Propofol 10mg/ml 20 ml Vial (Procedural) IV SCH (12:05)
[2024-10-29 13:17] VITALS: BP 154/87
== END 2024-10-29 13:17 | disposition home or self-care (01) ==
LOC: ER 11:08
DX: T84.020A Dislocation of internal right hip prosthesis, initial encounter (principal); J44.9 Chronic obstructive pulmonary disease, unspecified; I25.10 Atherosclerotic heart disease of native coronary artery without angina pectoris; K21.9 Gastro-esophageal reflux disease without esophagitis; E66.9 Obesity, unspecified; I11.0 Hypertensive heart disease with heart failure; I50.9 Heart failure, unspecified; Y79.2 Prosthetic and other implants, materials and accessory orthopedic devices associated with adverse incidents; Z88.8 Allergy status to other drugs, medicaments and biological substances; Z79.84 Long term (current) use of oral hypoglycemic drugs; Z79.82 Long term (current) use of aspirin; Z79.899 Other long term (current) drug therapy; Z96.643 Presence of artificial hip joint, bilateral; Z87.891 Personal history of nicotine dependence
CPT/HCPCS: 27265; 73501; 73502; 96374-59; 96375-59; 99152; 99284-25; J1171; J2405; J2704

== ENCOUNTER 2024-12-18 23:58 | Emergency (ER) | payer OTHER ==
[~2024-12-18] VITALS: Ht 154.9 cm; Wt 64.0 kg
[~2024-12-18 23:58] MED LIST changes: +LUBRICANT OP
[2024-12-19 01:15] VITALS: BP 137/73
== END 2024-12-19 02:47 | disposition home or self-care (01) ==
LOC: ER 23:58
DX: S00.03XA Contusion of scalp, initial encounter (principal); I11.0 Hypertensive heart disease with heart failure; I50.9 Heart failure, unspecified; J44.9 Chronic obstructive pulmonary disease, unspecified; K21.9 Gastro-esophageal reflux disease without esophagitis; G47.33 Obstructive sleep apnea (adult) (pediatric); Z79.899 Other long term (current) drug therapy; Z79.82 Long term (current) use of aspirin; Z79.84 Long term (current) use of oral hypoglycemic drugs; Z88.8 Allergy status to other drugs, medicaments and biological substances; Z88.5 Allergy status to narcotic agent; W01.0XXA Fall on same level from slipping, tripping and stumbling without subsequent striking against object, initial encounter; Z87.891 Personal history of nicotine dependence
CPT/HCPCS: 70450; 72125; 93005; 93010; 99284-25

== ENCOUNTER 2024-12-20 09:40 | Emergency (ER) | payer OTHER ==
[~2024-12-20] VITALS: Ht 154.9 cm; Wt 64.9 kg
[2024-12-20 10:15] LABS: Hematocrit 27.4 % (33.0-51.0); Hemoglobin 8.9 g/dL (11.5-16.0); Mean Corpuscular HGB 28.9 pg (26.0-34.0); Mean Corpuscular HGB Conc 32.5 g/dL (31.5-36.5); Mean Corpuscular Volume 89 fL (80-100); Mean Platelet Volume 8.9 fL (9.1-12.4); Platelet Count 191 K/mm3 (150-400); RDW Standard Deviation 49.1 fL (35.1-46.3); Red Blood Cell Count 3.08 M/mm3 (3.80-5.20)
[2024-12-20 10:21] LABS: Source, Urine Clean Catch
[2024-12-20 10:33] LABS: Appearance, Urine Clear (Clear); Bilirubin, Urine Neg (Neg); Blood, Urine Neg (Neg); Color, Urine Yellow (P-Yellow); Glucose Qualitative, Urine Neg (Neg); Ketones, Urine Neg (Neg); Leukocyte Esterase, Urine Neg (Neg); Nitrite, Urine Neg (Neg); Protein, Urine Neg (Neg); Specific Gravity, Urine 1.015 (1.003-1.022); Urobilinogen, Urine NORM (Normal)
[2024-12-20 10:41] LABS: Albumin, Blood 1.9 g/dL (3.4-5.0); Albumin/Globulin Ratio 0.5 (0.8-1.8); Bilirubin, Total 0.3 mg/dL (0.1-1.0); Bun/Creatinine Ratio 14.2 (12.0-20.0); Calcium, Blood 8.6 mg/dL (8.5-10.1); Creatinine, Blood 0.57 mg/dL (0.40-1.00); Globulin, Blood 3.7 g/dL (2.2-4.0); Potassium, Blood 3.8 mmol/L (3.5-5.5); Total Protein, Blood 5.6 g/dL (6.4-8.2)
[2024-12-20 10:59] LABS: BAND PERCENT MAN 1 % (0-8); BASOPHILS PERCENT MAN 0 % (0-2); EOSINOPHILS ABSOLUTE MAN 0.08 K/mm3 (0.00-0.68); EOSINOPHILS PERCENT MAN 1 % (0-6); LYMPHOCYTES ABSOLUTE MAN 1.62 K/mm3 (0.84-5.20); LYMPHOCYTES PERCENT MAN 20 % (21-46); MONOCYTES ABSOLUTE MAN 0.64 K/mm3 (0.16-1.47); MONOCYTES PERCENT MAN 8 % (4-13); NEUTROPHILS ABSOLUTE MAN 5.75 K/mm3 (1.96-9.15); SEG NEUTROPHILS PERCENT MAN 70 % (41-73); TOTAL CELLS COUNTED 100
[2024-12-20 14:00] VITALS: BP 140/91
== END 2024-12-20 15:20 | disposition home or self-care (01) ==
LOC: ER 09:40
PROVIDERS: Emergency Medicine
DX: R53.1 Weakness (principal); S00.03XA Contusion of scalp, initial encounter; D64.9 Anemia, unspecified; J44.9 Chronic obstructive pulmonary disease, unspecified; K21.9 Gastro-esophageal reflux disease without esophagitis; E78.5 Hyperlipidemia, unspecified; G47.33 Obstructive sleep apnea (adult) (pediatric); I11.0 Hypertensive heart disease with heart failure; I50.30 Unspecified diastolic (congestive) heart failure; I25.10 Atherosclerotic heart disease of native coronary artery without angina pectoris; W18.30XA Fall on same level, unspecified, initial encounter; Z87.891 Personal history of nicotine dependence; Z96.643 Presence of artificial hip joint, bilateral; Z79.84 Long term (current) use of oral hypoglycemic drugs; Z79.82 Long term (current) use of aspirin; Z79.899 Other long term (current) drug therapy; Z91.81 History of falling
CPT/HCPCS: 70450; 72170; 74175; 80053; 81003; 84484; 85025; 93005; 93010; 99285-25; A6590; Q9967

== ENCOUNTER 2025-01-22 03:58 | Emergency (ER) | payer OTHER ==
[~2025-01-22] VITALS: Ht 167.6 cm; Wt 69.0 kg
[2025-01-22] MEDS ORDERED: Ketamine HCl 100 MG / ML 5ML Vial IV ONE (04:05)
[2025-01-22] MEDS ORDERED: FentaNYL Citrate 50 MCG/ML 2 ML Injection IV PRN (04:10)
[2025-01-22] MEDS ORDERED: NS 1,000 ML IV SCH (04:10)
[2025-01-22] MEDS ORDERED: Midazolam HCL 1 MG/ML 5MLVIAL ONE (04:46)
[2025-01-22 09:00] VITALS: BP 146/84
== END 2025-01-22 09:05 | disposition home or self-care (01) ==
LOC: ER 03:58
DX: M24.451 Recurrent dislocation, right hip (principal); E86.0 Dehydration; I11.0 Hypertensive heart disease with heart failure; I50.30 Unspecified diastolic (congestive) heart failure; E78.5 Hyperlipidemia, unspecified; J44.89 Other specified chronic obstructive pulmonary disease; F31.9 Bipolar disorder, unspecified; K21.9 Gastro-esophageal reflux disease without esophagitis; I25.10 Atherosclerotic heart disease of native coronary artery without angina pectoris; Z88.8 Allergy status to other drugs, medicaments and biological substances; Z79.84 Long term (current) use of oral hypoglycemic drugs; Z79.82 Long term (current) use of aspirin; Z79.899 Other long term (current) drug therapy; Z87.891 Personal history of nicotine dependence
CPT/HCPCS: 27265; 73502; 99152; 99284-25; J2250; J2704; J3010; J7030

== ENCOUNTER 2025-03-22 09:34 | Emergency (ER) | payer OTHER ==
[~2025-03-22] VITALS: Ht 154.9 cm; Wt 56.7 kg
[2025-03-22 10:29] LABS: BASOPHILS ABSOLUTE AUTO 0.02 K/mm3 (0.00-0.23); BASOPHILS PERCENT AUTO 0 % (0-2); EOSINOPHILS ABSOLUTE AUTO 0.18 K/mm3 (0.00-0.68); EOSINOPHILS PERCENT AUTO 3 % (0-6); Hematocrit 33.9 % (33.0-51.0); Hemoglobin 10.8 g/dL (11.5-16.0); IMMATURE GRAN ABSOLUTE AUTO 0.02 K/mm3 (0.00-0.10); IMMATURE GRAN PERCENT AUTO 0 % (0-1); LYMPHOCYTES ABSOLUTE AUTO 2.44 K/mm3 (0.84-5.20); LYMPHOCYTES PERCENT AUTO 36 % (21-46); MONOCYTES ABSOLUTE AUTO 0.30 K/mm3 (0.16-1.47); MONOCYTES PERCENT AUTO 5 % (4-13); Mean Corpuscular HGB Conc 31.9 g/dL (31.5-36.5); Mean Corpuscular Volume 85 fL (80-100); NEUTROPHILS ABSOLUTE AUTO 3.78 K/mm3 (1.96-9.15); NEUTROPHILS PERCENT AUTO 56 % (41-73); NRBC ABSOLUTE 0.00 K/mm3 (0.00-0.02); NRBC Auto 0.0 /100 WBC (0.0-0.2); Platelet Count 230 K/mm3 (150-400); RDW Coefficient Variation 14.9 % (11.7-14.2); RDW Standard Deviation 46.6 fL (35.1-46.3)
[2025-03-22 10:53] LABS: Alanine Aminotransfer (ALT/SGP 16.0 U/L (12-78); Albumin, Blood 3.1 g/dL (3.4-5.0); Albumin/Globulin Ratio 0.8 (0.8-1.8); Anion Gap 6.0 mmol/L (3-11); Aspartate Aminotrans (AST/SGOT 21.0 U/L (12-37); Bilirubin, Total 0.2 mg/dL (0.1-1.0); Blood Urea Nitrogen 11.0 mg/dL (8-24); CO2, Blood 32.0 mmol/L (21-32); Calcium, Blood 9.1 mg/dL (8.5-10.1); Chloride, Blood 103.0 mmol/L (98-108); Creatinine, Blood 0.55 mg/dL (0.40-1.00); Globulin, Blood 3.9 g/dL (2.2-4.0); Glucose, Blood 82.0 mg/dL (70-99); Potassium, Blood 3.8 mmol/L (3.5-5.5); Sodium, Blood 137.0 mmol/L (136-145); Total Protein, Blood 7.0 g/dL (6.4-8.2)
[2025-03-22] MEDS ORDERED: NARCAN4 M1 (11:26)
[2025-03-22 11:45] VITALS: BP 108/71
== END 2025-03-22 13:11 | disposition home or self-care (01) ==
LOC: ER 09:34
PROVIDERS: Emergency Medicine
DX: T40.601A Poisoning by unspecified narcotics, accidental (unintentional), initial encounter (principal); G92.8 Other toxic encephalopathy; J44.9 Chronic obstructive pulmonary disease, unspecified; K21.9 Gastro-esophageal reflux disease without esophagitis; E78.5 Hyperlipidemia, unspecified; G47.33 Obstructive sleep apnea (adult) (pediatric); I11.0 Hypertensive heart disease with heart failure; I50.32 Chronic diastolic (congestive) heart failure; M19.90 Unspecified osteoarthritis, unspecified site; Z88.0 Allergy status to penicillin; Z88.1 Allergy status to other antibiotic agents; Z79.84 Long term (current) use of oral hypoglycemic drugs; Z87.891 Personal history of nicotine dependence
CPT/HCPCS: 71045; 80053; 85025; 93005; 93010; 99285-25

== ENCOUNTER 2025-04-13 23:43 | Emergency (ER) | payer OTHER ==
[~2025-04-13] VITALS: Ht 154.9 cm; Wt 59.9 kg
[2025-04-13] MEDS ORDERED: HYDROmorphone HCl/Pf 1MG SYR IV ONE (23:55)
[2025-04-14] MEDS ORDERED: HYDROmorphone HCl/Pf 1MG SYR IV ONE (00:15)
[2025-04-14] MEDS ORDERED: Propofol 10mg/ml 20 ml Vial (Procedural) IV SCH (00:50)
[2025-04-14] MEDS ORDERED: NS 1,000 ML IV SCH (00:55)
[2025-04-14 01:45] VITALS: BP 143/84
== END 2025-04-14 03:37 | disposition home or self-care (01) ==
LOC: ER 23:43
DX: T84.020A Dislocation of internal right hip prosthesis, initial encounter (principal); M24.451 Recurrent dislocation, right hip; J44.89 Other specified chronic obstructive pulmonary disease; K21.9 Gastro-esophageal reflux disease without esophagitis; I11.0 Hypertensive heart disease with heart failure; I50.30 Unspecified diastolic (congestive) heart failure; G47.33 Obstructive sleep apnea (adult) (pediatric); Z87.891 Personal history of nicotine dependence; Z79.899 Other long term (current) drug therapy; Z79.82 Long term (current) use of aspirin; Z79.51 Long term (current) use of inhaled steroids; Z88.8 Allergy status to other drugs, medicaments and biological substances; Z88.5 Allergy status to narcotic agent; Z88.1 Allergy status to other antibiotic agents
CPT/HCPCS: 27265; 72170; 73502; 96374-59; 96376-59; 99284; J1171; J2704; J7030

== ENCOUNTER 2025-07-03 02:01 | Emergency (ER) | payer OTHER ==
[~2025-07-03] VITALS: Ht 154.9 cm; Wt 60.8 kg
[2025-07-03] MEDS ORDERED: Propofol 10mg/ml 20 ml Vial (Procedural) IV SCH (02:10)
[2025-07-03] MEDS ORDERED: Aspir 8181 MG PO (02:13)
[2025-07-03] MEDS ORDERED: FERSU300 PO (02:15)
[2025-07-03] MEDS ORDERED: METAMUCIL FIBE3.4 GM PO (02:16)
[2025-07-03] MEDS ORDERED: NS 1,000 ML IV SCH (02:50)
[2025-07-03 06:00] VITALS: BP 101/63
== END 2025-07-03 06:36 | disposition home or self-care (01) ==
LOC: ER 02:01
DX: T84.020A Dislocation of internal right hip prosthesis, initial encounter (principal); J44.89 Other specified chronic obstructive pulmonary disease; I50.30 Unspecified diastolic (congestive) heart failure; I11.0 Hypertensive heart disease with heart failure; I25.10 Atherosclerotic heart disease of native coronary artery without angina pectoris; E78.5 Hyperlipidemia, unspecified; K21.9 Gastro-esophageal reflux disease without esophagitis; G47.33 Obstructive sleep apnea (adult) (pediatric); Z96.643 Presence of artificial hip joint, bilateral; Z87.891 Personal history of nicotine dependence; Z88.0 Allergy status to penicillin; Z88.8 Allergy status to other drugs, medicaments and biological substances; Z79.84 Long term (current) use of oral hypoglycemic drugs; Z79.82 Long term (current) use of aspirin; Z79.899 Other long term (current) drug therapy
CPT/HCPCS: 27265; 72170; 73502; 99284-25; J2704; J7030